=== PATIENT | male | born 1935 | race Two or more races ===

== ENCOUNTER 2017-09-29 14:49 | Inpatient (IN) | payer OTHER, MEDICAID ==
[~2017-09-29] VITALS: Ht 165.1 cm; Wt 59.0 kg
[~2017-09-29 14:49] MED LIST: ALDACTONE25 MG PO; AMITIZA8 MCG PO; ASPIRIN EC81 MG PO; BENADRYL25 MG PO; COREG12.5 MG PO; CREON DR 12,001 EACH PO; DEXILANT60 MG PO; DIPHENHYDRAMINE25 M1 PO; LOPID600 MG PO; NEURONTIN400 MG PO; NORCO 5-325 TA1 EACH PO; OMEPRAZOLE40 MG PO; PERIDEX 0.12% O16 OZ MT; PLAVIX75 MG PO; RANEXA1000 MG PO; VITAMIN B-1 PO; VITAMIN B-150 MG PO
[2017-09-29] MEDS ORDERED: FUROSEMIDE40 MG ORAL (15:02)
[2017-09-29] MEDS ORDERED: BUMETANIDE1 MG ORAL (15:02)
[2017-09-29] MEDS ORDERED: METOPROLOL SUCC25 MG ORAL (15:02)
[2017-09-29] MEDS ORDERED: LANTUS SOL100 UNIT/1 SUBQ (15:02)
[2017-09-29] MEDS ORDERED: DIOVAN80 MG ORAL (15:02)
[2017-09-29] MEDS ORDERED: PROAIR HFA8.5 GM INH (15:02)
[2017-09-29] MEDS ORDERED: ASPIR 8181 MG ORAL (15:02)
[2017-09-29] MEDS ORDERED: PENTOXIFYLLINE400 MG ORAL (15:02)
[2017-09-29] MEDS ORDERED: PROSCAR5 MG ORAL (15:02)
[2017-09-29] MEDS ORDERED: OMEPRAZOLE40 M1 ORAL (15:02)
[2017-09-29] MEDS ORDERED: LORAZEPAM0.5 MG ORAL (15:02)
[2017-09-29] MEDS ORDERED: ATORVASTATIN CA40 MG ORAL (15:02)
[2017-09-29 15:10] VITALS: BP 177/129
[2017-09-29 16:58] LABS: BASOPHILS % (AUTO) 1.5 % (0.0-2.0); EOSINOPHILS % (AUTO) 1.3 % (0.0-3.0); HEMATOCRIT 47.4 % (42.0-52.0); HEMOGLOBIN 15.4 G/DL (14.2-18.0); MEAN CORPUSCULAR VOLUME 86 FL (80-99); MONOCYTES % (AUTO) 9.8 % (1.0-10.0); NEUTROPHILS % (AUTO) 63.5 % (45.0-75.0); PLATELET COUNT 235 K/UL (150-450); RED CELL DISTRIBUTION WIDTH 14.9 % (11.6-14.8); WHITE BLOOD COUNT 6.1 K/UL (4.8-10.8)
[2017-09-29 17:00] VITALS: BP 130/54
[2017-09-29 17:00] LABS: INR 1.6 (0.9-1.1)
[2017-09-29 17:02] LABS: ANION GAP 12 mmol/L (5-15); BLOOD UREA NITROGEN 47 mg/dL (7-18); CALCIUM 9.1 MG/DL (8.5-10.1); CARBON DIOXIDE 23 MMOL/L (21-32); CHLORIDE 99 MMOL/L (98-107); CREATININE 1.8 MG/DL (0.55-1.30); POTASSIUM 4.6 MMOL/L (3.5-5.1); SODIUM 134 MMOL/L (136-145)
[2017-09-29 17:15] LABS: ALANINE AMINOTRANSFERASE 193 U/L (12-78); ALBUMIN 3.7 G/DL (3.4-5.0); ALKALINE PHOSPHATASE 160 U/L (46-116); ASPARTATE AMINO TRANSFERASE 209 U/L (15-37); BILIRUBIN,TOTAL 1.3 MG/DL (0.2-1.0)
[2017-09-29 17:17] LABS: BILIRUBIN,DIRECT 0.5 MG/DL (0.0-0.3)
[2017-09-29 19:00] VITALS: BP 118/64
[2017-09-29 21:15] VITALS: BP 117/78
[2017-09-29] MEDS ORDERED: Albuterol/Ipratropium 3ml neb HHN PRN (22:15)
[2017-09-29] MEDS ORDERED: Miralax 17gm pkt ORAL PRN (22:15)
[2017-09-29 23:00] VITALS: BP 117/71
[2017-09-29 23:45] VITALS: BP 109/69
--- NOTE | 2017-09-29 23:55 | Emergency Room Report ---
History of Present Illness General Chief Complaint: General Complaint Source: Patient, Medical Record Present Illness HPI Patient is a 82-year-old male who presented after increased leg swelling and chest discomfort. Patient reported having recent procedure which she had the left leg. The patient stated this was approximately 2 weeks prior to arrival. He reports having increased bilateral leg discomfort. Patient noted to have leg swelling. He denied shortness of breath. The patient reports taking diuretics with minimal effect. Allergies: Coded Allergies: No Known Allergies (Unverified , 05/09/12) Patient History Past Medical History: see triage record Past Surgical History: pacemaker Reviewed Nursing Documentation: PMH: Agreed Nursing Documentation-PMH Past Medical History: No History, Except For Hx Cardiac Problems: Yes Hx Hypertension: Yes Hx Pacemaker: Yes - LEFT CHEST WALL 5 YEARS AGO Hx Diabetes: Yes Hx Cancer: No Hx Gastrointestinal Problems: No Hx Neurological Problems: Yes Hx Cerebrovascular Accident: Yes Review of Systems All Other Systems: limited - by poor historian Physical Exam Vital Signs Date Time Temp Pulse Resp B/P (MAP) Pulse Ox O2 Delivery O2 Flow Rate FiO2 09/29/17 14:57 98.3 83 18 111/70 100 Room Air 98.2 Sp02 EP Interpretation: reviewed, normal General Appearance: normal inspection, well appearing, no apparent distress, alert, GCS 15, Chronically Ill Head: atraumatic ENT: normal ENT inspection, hearing grossly normal, normal voice Neck: normal inspection, full range of motion, supple, no bony tend Respiratory: normal inspection, lungs clear, normal breath sounds, no respiratory distress, no retraction, no wheezing Cardiovascular #1: regular rate, rhythm, no edema Gastrointestinal: normal inspection, normal bowel sounds, non tender, soft, no guarding, no hernia Genitourinary: no CVA tenderness Musculoskeletal: normal inspection, back normal, normal range of motion Neurologic: normal inspection, alert, oriented x3, responsive, mason apprentice III-XII nml as tested, speech normal Psychiatric: normal inspection, judgement/insight normal, mood/affect normal Skin: normal inspection, normal color, no rash, other - puncture valente near artery to left inguinal area Medical Decision Making Diagnostic Impression: Primary Impression: CHF exacerbation ER Course The patient presented for leg swelling. Differential diagnoses included was not limited to the CHF, DVT, allergic reaction, renal failure, liver disease among others.Because of complexity of patient's case laboratory testing and imaging studies were ordered. The patient was given IV Lasix. A chest x-ray one view interpreted by me showed normal cardiac size with pacemaker placement. Dr. Goran Delgado was contacted for inpatient management Labs Test 09/29/17 16:15 White Blood Count 6.1 K/UL (4.8-10.8) Red Blood Count 5.50 M/UL (4.70-6.10) Hemoglobin 15.4 G/DL (14.2-18.0) Hematocrit 47.4 % (42.0-52.0) Mean Corpuscular Volume 86 FL (80-99) Mean Corpuscular Hemoglobin 27.9 PG (27.0-31.0) Mean Corpuscular Hemoglobin Concent 32.4 G/DL (32.0-36.0) Red Cell Distribution Width 14.9 % (11.6-14.8) Platelet Count 235 K/UL (150-450) Mean Platelet Volume 8.6 FL (6.5-10.1) Neutrophils (%) (Auto) 63.5 % (45.0-75.0) Lymphocytes (%) (Auto) 24.0 % (20.0-45.0) Monocytes (%) (Auto) 9.8 % (1.0-10.0) Eosinophils (%) (Auto) 1.3 % (0.0-3.0) Basophils (%) (Auto) 1.5 % (0.0-2.0) Prothrombin Time 16.6 SEC (9.30-11.50) Prothromb Time International Ratio 1.6 (0.9-1.1) Activated Partial Thromboplast Time 24 SEC (23-33) Sodium Level 134 MMOL/L (136-145) Potassium Level 4.6 MMOL/L (3.5-5.1) Chloride Level 99 MMOL/L (98-107) Carbon Dioxide Level 23 MMOL/L (21-32) Anion Gap 12 mmol/L (5-15) Blood Urea Nitrogen 47 mg/dL (7-18) Creatinine 1.8 MG/DL (0.55-1.30) Estimat Glomerular Filtration Rate mL/min (>60) Glucose Level 157 MG/DL (74-106) Calcium Level 9.1 MG/DL (8.5-10.1) Total Bilirubin 1.3 MG/DL (0.2-1.0) Direct Bilirubin 0.5 MG/DL (0.0-0.3) Aspartate Amino Transf (AST/SGOT) 209 U/L (15-37) Alanine Aminotransferase (ALT/SGPT) 193 U/L (12-78) Alkaline Phosphatase 160 U/L (46-116) Troponin I 0.010 ng/mL (0.000-0.056) Total Protein 7.4 G/DL (6.4-8.2) Albumin 3.7 G/DL (3.4-5.0) Globulin 3.7 g/dL Albumin/Globulin Ratio 1.0 (1.0-2.7) Thyroid Stimulating Hormone (TSH) 3.500 uiU/mL (0.358-3.740) Last Vital Signs Date Time Temp Pulse Resp B/P (MAP) Pulse Ox O2 Delivery O2 Flow Rate FiO2 09/29/17 23:20 98.0 89 20 117/78 99 Room Air 98.0 Status: unchanged Disposition: ADMITTED INPATIENT Condition: Serious Referrals: NON PHYSICIAN (PCP) Jc Zhang Sep 29, 2017 23:55
[2017-09-30 04:00] VITALS: BP 118/68
[2017-09-30] MEDS: NovoLOG Insulin Flexpen SUBQ SCH ×4 (06:14→21:27)
[2017-09-30 08:00] VITALS: BP 108/58
[2017-09-30 08:41] LABS: ANION GAP 11 mmol/L (5-15); BLOOD UREA NITROGEN 42 mg/dL (7-18); CALCIUM 9.1 MG/DL (8.5-10.1); CARBON DIOXIDE 27 MMOL/L (21-32); CHLORIDE 101 MMOL/L (98-107); CREATININE 1.6 MG/DL (0.55-1.30); POTASSIUM 3.7 MMOL/L (3.5-5.1); SODIUM 139 MMOL/L (136-145)
[2017-09-30] MEDS: Carvedilol 12.5mg tab ORAL SCH ×2 (08:43→17:39)
[2017-09-30] MEDS: Heparin 5000 units/ml inj SUBQ SCH ×2 (08:45→20:25)
[2017-09-30] MEDS ORDERED: Metoprolol Succinate XL 25mg tab ORAL SCH (09:00)
--- NOTE | 2017-09-30 09:12 | Diagnostic Imaging Report ---
Indication: Shortness of breath Technique: One view of the chest Comparison: 05/11/2012 Findings: Lungs and pleural spaces are clear. The heart size is normal. There is a left chest unifocal AICD. There is evidence of prior CABG, the latter a new finding since previous study. Impression: No acute process
[2017-09-30 12:06] VITALS: BP 128/43
--- NOTE | 2017-09-30 13:07 | Consultation ---
History of Present Illness General Date patient seen: Sep 30, 2017 Chief Complaint: General Complaint Present Illness HPI 82-year-old male with hx of CAD, cardiomyopathy, ICD, presented to ER after increased leg swelling and chest discomfort for approximately 2 weeks prior to arrival. He reports having increased bilateral leg discomfort. Patient noted to have leg swelling. Allergies: Coded Allergies: No Known Allergies (Unverified , 05/09/12) Medication History Scheduled Albuterol Sulfate* (Proair Hfa*), 1 PUFF INH Q6H, (Reported) Aspirin Ec* (Aspirin Ec*), 81 MG PO HS, (Reported) Aspirin* (Aspir 81*), 81 MG ORAL DAILY, (Reported) Atorvastatin Calcium* (Atorvastatin Calcium*), 40 MG ORAL BEDTIME, (Reported) Bumetanide* (Bumetanide*), 1 MG ORAL DAILY, (Reported) Carvedilol (Coreg), 12.5 MG PO BID, (Reported) Chlorhexidine Gluconate (Chlorhexidine Gluconate), 1 OZ MT BID, (Reported) Clopidogrel Bisulfate* (Plavix*), 75 MG PO DAILY, (Reported) Dexlansoprazole (Dexilant), 60 MG PO DAILY, (Reported) Finasteride* (Proscar*), 5 MG ORAL DAILY, (Reported) Furosemide* (Lasix*), 40 MG ORAL DAILY, (Reported) Gabapentin* (Neurontin*), 400 MG PO QHS, (Reported) Gemfibrozil* (Lopid*), 600 MG PO BID, (Reported) Insulin Glargine (Lantus), 0 SUBQ BEDTIME, (Reported) Lipase/Protease/Amylase (Creon Dr 12,000 Units Capsule), 1 EACH PO TID, ( Reported) Lorazepam* (Lorazepam*), 0.5 MG ORAL THREE TIMES A DAY, (Reported) Lubiprostone (Amitiza), 8 MCG PO DAILY, (Reported) Metoprolol Succinate* (Metoprolol Succinate*), 25 MG ORAL DAILY, (Reported) Omeprazole (Omeprazole), 40 MG PO DAILY, (Reported) Omeprazole (Omeprazole), 40 MG ORAL DAILY, (Reported) Pentoxifylline* (Trental*), 400 MG ORAL THREE TIMES A DAY, (Reported) Ranolazine (Ranexa), 1,000 MG PO BID, (Reported) Spironolactone (Aldactone), 25 MG PO DAILY, (Reported) Thiamine Hcl (Vitamin B-1), 100 MG PO BID, (Reported) Valsartan (Diovan), 40 MG ORAL DAILY, (Reported) Scheduled PRN Diphenhydramine Hcl* (Diphenhydramine Hcl*), 25 MG PO HS PRN, (Reported) Hydrocodone Bit/Acetaminophen 5-325* ([place] 5-325*), 1 TAB PO Q4HR PRN, ( Reported) Patient History Healthcare decision maker Resuscitation status Full Code Advanced Directive on File No Past Medical/Surgical History Past Medical/Surgical History: (1) End-stage systolic heart failure Review of Systems All Other Systems: negative except mentioned in HPI Physical Exam General Appearance: WD/WN Lines, tubes and drains: peripheral, central line HEENT: normocephalic, atraumatic Neck: non-tender, supple Breasts: no masses Cardiovascular/Chest: normal rate Abdomen: normal bowel sounds, non tender Extremities: moderate edema Skin Exam: other Last 24 Hour Vital Signs Date Time Temp Pulse Resp B/P (MAP) Pulse Ox O2 Delivery O2 Flow Rate FiO2 09/30/17 12:06 98.1 74 18 128/43 98 Room Air 98.1 09/30/17 11:49 97.0 09/30/17 08:43 71 108/58 09/30/17 08:43 71 108/58 09/30/17 08:16 70 16 Room Air 21 09/30/17 08:00 97.0 71 19 108/58 98 Room Air 97.0 09/30/17 08:00 67 09/30/17 04:00 62 09/30/17 04:00 97.8 70 20 118/68 98 Room Air 97.8 09/30/17 00:00 59 09/29/17 23:45 97.9 65 20 109/69 100 Room Air 97.9 09/29/17 23:20 98.0 89 20 117/78 99 Room Air 98.0 09/29/17 23:00 98.0 74 20 117/71 99 Room Air 98.0 09/29/17 21:15 98.0 89 20 117/78 99 Room Air 98.0 09/29/17 19:00 98.0 89 20 118/64 99 Room Air 98.0 09/29/17 17:00 98.2 87 20 130/54 100 Room Air 98.2 09/29/17 15:10 98.2 72 20 177/129 100 Room Air 98.2 09/29/17 14:57 98.3 83 18 111/70 100 Room Air 98.2 Intake and Output 09/29/17 09/30/17 19:00 07:00 Intake Total 120 ml Output Total 1250 ml Balance -1130 ml Intake Oral 120 ml Output Urine Total 1250 ml # Voids 1 2 Laboratory Tests Test 09/29/17 16:15 09/30/17 06:35 White Blood Count 6.1 K/UL (4.8-10.8) Red Blood Count 5.50 M/UL (4.70-6.10) Hemoglobin 15.4 G/DL (14.2-18.0) Hematocrit 47.4 % (42.0-52.0) Mean Corpuscular Volume 86 FL (80-99) Mean Corpuscular Hemoglobin 27.9 PG (27.0-31.0) Mean Corpuscular Hemoglobin Concent 32.4 G/DL (32.0-36.0) Red Cell Distribution Width 14.9 % (11.6-14.8) H Platelet Count 235 K/UL (150-450) Mean Platelet Volume 8.6 FL (6.5-10.1) Neutrophils (%) (Auto) 63.5 % (45.0-75.0) Lymphocytes (%) (Auto) 24.0 % (20.0-45.0) Monocytes (%) (Auto) 9.8 % (1.0-10.0) Eosinophils (%) (Auto) 1.3 % (0.0-3.0) Basophils (%) (Auto) 1.5 % (0.0-2.0) Prothrombin Time 16.6 SEC (9.30-11.50) H Prothromb Time International Ratio 1.6 (0.9-1.1) H Activated Partial Thromboplast Time 24 SEC (23-33) Sodium Level 134 MMOL/L (136-145) L 139 MMOL/L (136-145) Potassium Level 4.6 MMOL/L (3.5-5.1) 3.7 MMOL/L (3.5-5.1) Chloride Level 99 MMOL/L (98-107) 101 MMOL/L (98-107) Carbon Dioxide Level 23 MMOL/L (21-32) 27 MMOL/L (21-32) Anion Gap 12 mmol/L (5-15) 11 mmol/L (5-15) Blood Urea Nitrogen 47 mg/dL (7-18) H 42 mg/dL (7-18) H Creatinine 1.8 MG/DL (0.55-1.30) H 1.6 MG/DL (0.55-1.30) H Estimat Glomerular Filtration Rate mL/min (>60) mL/min (>60) Glucose Level 157 MG/DL (74-106) H 61 MG/DL (74-106) L Calcium Level 9.1 MG/DL (8.5-10.1) 9.1 MG/DL (8.5-10.1) Total Bilirubin 1.3 MG/DL (0.2-1.0) H Direct Bilirubin 0.5 MG/DL (0.0-0.3) H Aspartate Amino Transf (AST/SGOT) 209 U/L (15-37) H Alanine Aminotransferase (ALT/SGPT) 193 U/L (12-78) H Alkaline Phosphatase 160 U/L (46-116) H Troponin I 0.010 ng/mL (0.000-0.056) 0.011 ng/mL (0.000-0.056) Total Protein 7.4 G/DL (6.4-8.2) Albumin 3.7 G/DL (3.4-5.0) Globulin 3.7 g/dL Albumin/Globulin Ratio 1.0 (1.0-2.7) Thyroid Stimulating Hormone (TSH) 3.500 uiU/mL (0.358-3.740) Height (Feet): 5 Height (Inches): 5.00 Weight (Pounds): 130 Medications Current Medications Medications (Trade) Dose Ordered Sig/González Route PRN Reason Start Time Stop Time Status Last Admin Dose Admin Acetaminophen (Tylenol) 650 mg Q4H PRN ORAL Fever 09/29/17 22:15 10/29/17 22:14 09/30/17 11:49 Albuterol/ Ipratropium (Albuterol/ Ipratropium) 3 ml EVERY 4 HOURS PRN HHN Shortness of Breath 09/29/17 22:15 10/04/17 22:14 Atorvastatin Calcium (Lipitor) 40 mg BEDTIME ORAL 09/30/17 21:00 10/30/17 20:59 Carvedilol (Coreg) 12.5 mg BID ORAL 09/30/17 09:00 10/30/17 08:59 09/30/17 08:43 Clopidogrel Bisulfate (Plavix) 75 mg DAILY ORAL 09/30/17 09:00 10/30/17 08:59 09/30/17 08:42 Dextrose (Dextrose 50%) STAT PRN IV Hypoglycemia 09/29/17 22:15 10/29/17 22:14 Dextrose (Dextrose 50%) STAT PRN IV Hypoglycemia 09/29/17 22:15 10/29/17 22:14 Finasteride (Proscar) 5 mg DAILY ORAL 09/30/17 09:00 10/30/17 08:59 09/30/17 08:42 Furosemide (Lasix) 40 mg EVERY 8 HOURS IV 09/30/17 06:00 10/30/17 05:59 09/30/17 05:54 Gabapentin (Neurontin) 400 mg QHS ORAL 09/30/17 21:00 10/30/17 20:59 Heparin Sodium (Porcine) (Heparin 5000 units/ml) 5,000 units EVERY 12 HOURS SUBQ 09/30/17 09:00 10/30/17 08:59 09/30/17 08:45 Insulin Aspart (NovoLOG) BEFORE MEALS AND HS SUBQ 09/30/17 06:30 10/30/17 06:29 09/30/17 11:52 Metoprolol Succinate (Toprol XL) 25 mg DAILY ORAL 09/30/17 09:00 10/30/17 08:59 09/30/17 08:43 Ondansetron HCl (Zofran) 4 mg Q6H PRN IVP Nausea & Vomiting 09/29/17 22:15 10/29/17 22:14 Polyethylene Glycol (Miralax) 17 gm DAILYPRN PRN ORAL Constipation 09/29/17 22:15 10/29/17 22:14 Temazepam (Restoril) 15 mg HSPRN PRN ORAL Insomnia 09/29/17 22:15 10/06/17 22:14 Assessment/Plan Problem List: (1) Peripheral edema ICD Codes: R60.9 - Edema, unspecified SNOMED: 270173265 (2) PVD (peripheral vascular disease) ICD Codes: I73.9 - Peripheral vascular disease, unspecified SNOMED: 187692169 (3) End-stage systolic heart failure ICD Codes: I50.20 - Unspecified systolic (congestive) heart failure SNOMED: 604342808 Assessment/Plan vascular studies from legs optimize cardiac meds arterial studies from legs check electrolytes cardiology to see. Ramy Sheriff MD Sep 30, 2017 13:07
--- NOTE | 2017-09-30 14:41 | Cardiology Report ---
APPROVED REPORT EXAM: Two-dimensional and M-mode echocardiogram with Doppler and color Doppler. INDICATION LV FUNCTION M-Mode DIMENSIONS IVSd1.4 (0.7-1.1cm)Left Atrium (MM)4.0 (1.6-4.0cm) LVDd5.6 (3.5-5.6cm)Aortic Root3.0 (2.0-3.7cm) PWd1.2 (0.7-1.1cm)Aortic Cusp Exc.1.1 (1.5-2.0cm) IVSs1.5 cm LVDs4.5 (2.5-4.0cm) PWs1.1 cm Mild left atrial enlargements . Global left ventricular hypokiniseis with distal anterior wall and apical akinesis. Left ventricular ejection fraction estimated to be less than 20 %. Mild left ventricular hypertrophy by 2-D. No evidence of pericardial effusion. Mild left atrial enlargement. Right cardiac chamber sizes are within normal limits. Focal aortic valve sclerosis with adequate cusp excursion. Moderately Thickened mitral valve leaflets with normal excursion. Moderately Mitral annulus and aortic root calcification. Pulmonic valve not well visualized. Normal tricuspid valve structure. IVC at 1.6 cm with physiologic collapse . A color flow and spectral Doppler study was performed and revealed: Mild aortic regurgitation. Peak aortic valve gradient of 18 mm Hg and a mean of 10 mmHg. Mild mitral regurgitation. Mitral inflow velocities indicates possible pseudo normalization pattern implying moderately elevated left atrial pressure (Grade II ). Mild tricuspid regurgitation. Tricuspid systolic velocities suggests peak right ventricular systolic pressure of 41 mmHg,consistent with mild pulmonary hypertension. No Pulmonic regurgitation present.
--- NOTE | 2017-09-30 14:53 | Cardiology Report ---
APPROVED REPORT EKG Measurement Heart [id number] Normal sinus rhythm Possible Left atrial enlargement Left anterior fascicular block Inferior infarct, age undetermined Anterior infarct, age undetermined Abnormal ECG
--- NOTE | 2017-09-30 15:29 | History & Physical ---
History and Physical History & Physicial Goran Delgado MD Sep 30, 2017 15:29
[2017-09-30 16:00] VITALS: BP 92/55
--- NOTE | 2017-09-30 18:00 | General Progress Note ---
Assessment/Plan Assessment/Plan Assessment - Abnormal LFT - ? passive congestion - ? Statin - ? other - CM/CHF - CAD - hypercholesterolemia Recommendations - Optimize cardiac status - check hepatitis serologies - liver imaging - agree with holding statin Thank you Charlene Downey MD Subjective Allergies: Coded Allergies: No Known Allergies (Unverified , 05/09/12) Objective Last 24 Hour Vital Signs Date Time Temp Pulse Resp B/P (MAP) Pulse Ox O2 Delivery O2 Flow Rate FiO2 09/30/17 17:39 63 92/55 09/30/17 16:00 63 09/30/17 16:00 97.0 63 20 92/55 96 Room Air 97.0 09/30/17 13:10 98.1 09/30/17 12:06 98.1 74 18 128/43 98 Room Air 98.1 09/30/17 12:00 56 09/30/17 11:49 97.0 09/30/17 08:43 71 108/58 09/30/17 08:43 71 108/58 09/30/17 08:16 70 16 Room Air 21 09/30/17 08:00 97.0 71 19 108/58 98 Room Air 97.0 09/30/17 08:00 67 09/30/17 04:00 62 09/30/17 04:00 97.8 70 20 118/68 98 Room Air 97.8 09/30/17 00:00 59 09/29/17 23:45 97.9 65 20 109/69 100 Room Air 97.9 09/29/17 23:20 98.0 89 20 117/78 99 Room Air 98.0 09/29/17 23:00 98.0 74 20 117/71 99 Room Air 98.0 09/29/17 21:15 98.0 89 20 117/78 99 Room Air 98.0 09/29/17 19:00 98.0 89 20 118/64 99 Room Air 98.0 Intake and Output 09/29/17 09/30/17 19:00 07:00 Intake Total 120 ml Output Total 1250 ml Balance -1130 ml Intake Oral 120 ml Output Urine Total 1250 ml # Voids 1 2 Laboratory Tests 09/30/17 06:35: Sodium Level 139, Potassium Level 3.7, Chloride Level 101, Carbon Dioxide Level 27, Anion Gap 11, Blood Urea Nitrogen 42H, Creatinine 1.6H, Estimat Glomerular Filtration Rate , Glucose Level 61L, Calcium Level 9.1, Troponin I 0.011 Height (Feet): 5 Height (Inches): 5.00 Weight (Pounds): 130 CHARLENE DOWNEY Sep 30, 2017 18:00
--- NOTE | 2017-09-30 19:00 | Cardiology Progress Note ---
Assessment/Plan Assessment/Plan chf acute on chronic anxiety depression cm cad s/p cabg 2014 no sig reversible defect on perfusion imagin at [facility] 2017 passive liver congestion ? cri pvd arb , asa, idurtic coreg consider psych eval for depression [id number] Objective Last 24 Hour Vital Signs Date Time Temp Pulse Resp B/P (MAP) Pulse Ox O2 Delivery O2 Flow Rate FiO2 09/30/17 17:39 63 92/55 09/30/17 16:00 63 09/30/17 16:00 97.0 63 20 92/55 96 Room Air 97.0 09/30/17 13:10 98.1 09/30/17 12:06 98.1 74 18 128/43 98 Room Air 98.1 09/30/17 12:00 56 09/30/17 11:49 97.0 09/30/17 08:43 71 108/58 09/30/17 08:43 71 108/58 09/30/17 08:16 70 16 Room Air 21 09/30/17 08:00 97.0 71 19 108/58 98 Room Air 97.0 09/30/17 08:00 67 09/30/17 04:00 62 09/30/17 04:00 97.8 70 20 118/68 98 Room Air 97.8 09/30/17 00:00 59 09/29/17 23:45 97.9 65 20 109/69 100 Room Air 97.9 09/29/17 23:20 98.0 89 20 117/78 99 Room Air 98.0 09/29/17 23:00 98.0 74 20 117/71 99 Room Air 98.0 09/29/17 21:15 98.0 89 20 117/78 99 Room Air 98.0 09/29/17 19:00 98.0 89 20 118/64 99 Room Air 98.0 Intake and Output 09/29/17 09/30/17 19:00 07:00 Intake Total 120 ml Output Total 1250 ml Balance -1130 ml Intake Oral 120 ml Output Urine Total 1250 ml # Voids 1 2 Laboratory Tests Test 09/30/17 06:35 Sodium Level 139 MMOL/L (136-145) Potassium Level 3.7 MMOL/L (3.5-5.1) Chloride Level 101 MMOL/L (98-107) Carbon Dioxide Level 27 MMOL/L (21-32) Anion Gap 11 mmol/L (5-15) Blood Urea Nitrogen 42 mg/dL (7-18) H Creatinine 1.6 MG/DL (0.55-1.30) H Estimat Glomerular Filtration Rate mL/min (>60) Glucose Level 61 MG/DL (74-106) L Calcium Level 9.1 MG/DL (8.5-10.1) Troponin I 0.011 ng/mL (0.000-0.056) TRAE ZURITA Sep 30, 2017 19:00
[2017-09-30 20:00] VITALS: BP 89/48
--- NOTE | 2017-09-30 20:30 | History and Physical Report ---
DATE OF ADMISSION: 09/29/2017 CHIEF COMPLAINT: Shortness of breath and leg edema. HISTORY OF PRESENT ILLNESS: The patient is an 82-year-old very delightful [facility] gentleman with past medical history significant for severe cardiomyopathy status post AICD in left-side chest wall with a recent generator change, history of coronary artery disease status post open heart surgery, diabetes type 2, hypertension, dyslipidemia who presented to the emergency room after he was called by clinic and advised him to come to the hospital. The patient complained about the leg edema as well as chest discomfort. He recently had a procedure on his left leg with angiogram. The patient stated that he was approximately two weeks ago prior to arrival had a procedure done. He has increased bilateral leg discomfort, noted to have the leg swollen and some association shortness of breath and chest discomfort. The patient has been taking his diuretics with minimal effect and After initial evaluation in the emergency room, the patient was admitted to the hospital with acute CHF exacerbation on chronic as well as abnormal liver function tests with transaminitis. PAST MEDICAL HISTORY AND PAST SURGICAL HISTORY: As above history of hypertension, dyslipidemia, coronary artery disease status post myocardial infarction, history of status post AICD. Denies history of cancer. However history of hypertension and stroke in the past and diabetes type 2. MEDICATIONS: At home, please refer to medication reconciliation list. ALLERGIES: No known drug allergies. SOCIAL HISTORY: The patient denies any smoking, alcohol, or drugs. FAMILY HISTORY: Father with heart disease and brother has a history of heart disease. Mother had a history of cancer unspecified back in [facility]. REVIEW OF SYSTEMS: Mostly as above. Denies any dysuria or frequency. Complained about pedal edema. Denies any hemoptysis or hematochezia. Complained about shortness of breath. Denies any loss of consciousness. Denies any suicidal or homicidal ideation. PHYSICAL EXAMINATION: VITAL SIGNS: On admission, temperature 98.3, pulse of 83, respirations 18, blood pressure 110/70. GENERAL: The patient awake, responsive, no acute distress, chronic ill looking. HEENT: Head and neck examination, pupils are equal and reactive to light. Extraocular movements are intact. Neck was supple. Positive JVD. LUNGS: Good air entry. No wheezing or rales. HEART: S1 and S2. Distant heart sounds. No murmur or gallops. AICD in left-side chest wall was noted. Midline sternotomy site is well healed. ABDOMEN: Soft, nondistended, tender on deep palpation in the epigastric as well as right upper quadrant. No rebound tenderness. No fluid shift. No ascites. EXTREMITIES: No cyanosis, clubbing, +1 edema bilateral lower extremities. NEUROLOGIC: Cranial nerves II through XII are grossly intact. Motor is 5/5 in all extremities. The patient moving all extremities spontaneously without any deficit. Gait is intact. PSYCHIATRIC: Mood and affect is intact. LABORATORY DATA: On admission from the ER, sodium 134, potassium 4.3, chloride 99, bicarbonate 23, BUN 47, creatinine 1.8 and glucose 157. Total bilirubin of 1.3 and direct bilirubin of 0.5, AST of 209, ALT of 193, alkaline phosphatase 160. First and second troponin 0.01. TSH is 3.5. PT of INR 1.6, PTT of 24. WBC of 6.1, hemoglobin 15, hematocrit 47, platelet 235. The patient's chest x-ray noted to be no acute process with a history CABG as well as AICD. The patient had an echocardiogram noted to have mild left atrial enlargement with left ventricular ejection fraction of less than 20% distal anterior wall as well as apical akinesia, mild left atrial enlargement as well identified. ASSESSMENT: 1. Acute CHF exacerbation on chronic with systolic dysfunction. 2. Severe congestive heart failure with depressed ejection fraction status post AICD. 3. Ischemic cardiomyopathy. 4. Hypertension. 5. Abnormal liver function. 6. Diabetes type 2. 7. Hypertension. 8. Dyslipidemia. PLAN: Admit the patient to telemetry. We will follow up with Dr. Sheriff Pulmonary Critical Care as well as Dr. Charlene Downey from Gastroenterology. Followup with Cardiology recommendation. We will hold off on statins at this time due to the abnormal LFTs. Code Status Full Code. DVT prophylaxis, heparin subcutaneous. The patient continue on carvedilol as well as insulin sliding scan and Lasix. Goran Delgado M.D. DR: Kelsi JOB#: [id number] CC:
[2017-09-30] MEDS ORDERED: Atorvastatin 80mg tab ORAL SCH (21:00)
[2017-09-30] MEDS ORDERED: Milk of Magnesia 30ml Ud ORAL PRN (22:45)
[2017-10-01] VITALS: BP 92/51
[2017-10-01 04:00] VITALS: BP 88/50
--- NOTE | 2017-10-01 04:15 | Consultation ---
DATE OF CONSULTATION: 09/30/2017 CARDIOLOGY CONSULTATION CONSULTING PHYSICIAN: Sherwin Sena M.D. REFERRING PHYSICIAN: Goran Delgado M.D. REASON FOR REFERRAL: Congestive heart failure with cardiomyopathy. HISTORY OF PRESENT ILLNESS: This is an elderly gentleman, very unfortunate with multiple medical problems as delineated below. The patient presented to the hospital through the emergency room at [facility] because of various complaints including the fact that he feels depressed, not able to sleep at night. He does get up at night and it is kind of difficult to tell whether this is because of anxiety or active congestive heart failure, but he presented to the emergency room with increasing leg swelling and chest discomfort. He was at [facility] recently and workup was initiated and completed and the patient was subsequently discharged, it was approximately four weeks ago, and now presents to the hospital because of symptoms. He has dyspnea on exertion. There is swelling of the ankles and shortness of breath and pressure all over his chest he indicates, but the duration or the timing is really not clear. He has been admitted to the hospital already. Today, he has received some therapies in which he feels much more comfortable. PAST MEDICAL HISTORY: Positive for acute on chronic combined systolic and diastolic heart failure, kidney disease stage 3, diabetes mellitus with diabetic nephropathy, congestive hepatopathy, coronary artery disease, status post coronary artery bypass grafting in 2014, cardiomyopathy with ejection fraction in the 20%, chronic gastritis, diabetes mellitus, generalized anxiety disorder, generalized weakness, claudication, and peripheral vascular disease. ALLERGIES: He is not allergic to any medications. SOCIAL HISTORY: He used to smoke and drink, not anymore. REVIEW OF SYSTEMS: GASTROINTESTINAL: Some poor p.o. intake, some nausea, and reflux. GENITOURINARY: Negative, although he has slowed urine stream. PULMONARY: Positive coughing. CONSTITUTIONAL: He feels cold, but no fevers or chills noted. NEUROLOGIC: Negative. PHYSICAL EXAMINATION: GENERAL: Shows to be an elderly gentleman, in no respiratory distress. He actually looks quite comfortable, sitting up, eating his dinner. VITAL SIGNS: His blood pressure is 92/55 , temperature 97 degrees, and heart rate 63. NECK: Supple. No jugular venous distention. LUNGS: Appear to be clear to auscultation and percussion. CARDIAC: S1 is normal. S2 is normal. Regular rate and rhythm. Holosystolic regurgitant murmur is noted. ABDOMEN: Soft and nontender. Positive bowel sounds. EXTREMITIES: There is no clubbing, cyanosis, nor is there any significant edema. NEUROLOGIC: He is awake, alert, and responsive. LABORATORY AND DIAGNOSTIC DATA: White count 6.1, hemoglobin 15.5, and platelet count of 235. Sodium is 139, potassium 3.7, chloride 101, bicarbonate 26, BUN 42, creatinine 1.6 down from a creatinine of 1.8 at the time of admission, and glucose is 157. His TSH of 3.55. Alkaline phosphatase is 160, AST of 209, and ALT of 193. Two sets of cardiac enzymes are negative. INR is 1.6. He has had a chest x-ray performed that showed no acute processes. His echocardiogram showed ejection fraction of 20%, global hypokinesis, apical akinesis, and mild mitral regurgitation, mild aortic regurgitation, mild tricuspid regurgitation with PA pressure of 54. His electrocardiogram shows sinus rhythm, inferior infarct, anterior infarct, no significant ST-segment changes, minor T-wave abnormalities. ASSESSMENT AND PLAN: 1. Chronic congestive heart failure, systolic as well as diastolic chronic insufficiency. 2. Diabetes mellitus type 2. 3. Passive congestion. 4. Coronary artery disease, status post coronary bypass grafting. 5. History of cardiomyopathy. Negative stress test recently at [facility] for significant reversible defects. 6. Anxiety and depression. This patient was seen in cardiac consultation. He does have chronic congestive heart failure, does not appear to be in severe distress at the present time and probably should be seen by a psychiatrist as he does indicate that he has some depression at home. In the meantime, his medications should be continued with the use of ARBs that he was taking at home and diuretic as he was taking aspirin and statins. He was previously on some Coreg as well as Plavix and Lasix to be continued as well as Aldactone to be continued. The patient has no evidence of myonecrosis and electrocardiogram is fairly unremarkable. Sherwin Sena M.D. DR: Mague JOB#: [id number] CC:
--- NOTE | 2017-10-01 05:30 | Consultation ---
DATE OF CONSULTATION: 09/30/2017 NOTE: POOR AUDIO GASTROENTEROLOGY CONSULTATION CONSULTING PHYSICIAN: Charlene Downey M.D. CHIEF COMPLAINT: I was asked to see this patient by Dr. Goran Delgado for evaluation of abnormal liver tests. HISTORY OF PRESENT ILLNESS: The patient is an 82-year-old man with a history of cardiomyopathy who came to emergency room due to chest discomfort and leg swelling, which has been occurring for the last two weeks. He has had increasing edema in his legs and has been felt to be in congestive heart failure. He has been seen by his primary team and been placed on appropriate medications. During the course of admission, he was also noted to have abnormal liver tests. The patient has a long list of medications, one of which is atorvastatin and also the other one is Lopid both given for cholesterol elevation. The patient has never had any history of liver disease or hepatitis. He denies any abdominal pain or nausea or vomiting. He does not drink alcohol. PAST MEDICAL HISTORY: History of coronary artery disease, status post open heart surgery, hypercholesterolemia, reactive airway disease, and history of edema. MEDICATIONS: See the chart list for details. FAMILY HISTORY: Negative for significant gastrointestinal disorders. SOCIAL HISTORY: The patient is single. He does not smoke and does not drink. REVIEW OF SYSTEMS: Otherwise negative. PHYSICAL EXAMINATION: GENERAL: This is a pleasant man, seen in his room. HEENT: Normocephalic and atraumatic. Sclerae are anicteric. Oropharynx is clear. NECK: Supple. CHEST: Clear to auscultation. CARDIOVASCULAR: Revealed a regular rate. ABDOMEN: Soft with good bowel sounds. EXTREMITIES: Revealed 1+ edema. ASSESSMENT: This patient presents with abnormal liver tests of unclear etiology. Given his complication of congestive heart failure and cardiomyopathy and the nature of the labs observed, the possibility of congestive heart disease would be high in differential. His medications will be another consideration where I agree with holding his statin as well as Lopid for the time being. Other possibilities including viral hepatitis, which can be checked, although less likely in this age group. His other medications can be continued but if the liver test elevations persist then they should be minimized. RECOMMENDATIONS: Per above discussion and per orders written in the chart. Thank you for asking me to participate in the care of this patient. Charlene Downey M.D. DR: DANYELLE JOB#: [id number] CC: DELMA
[2017-10-01] MEDS: NovoLOG Insulin Flexpen SUBQ SCH ×4 (06:30→21:29)
[2017-10-01 07:54] VITALS: BP 97/55
[2017-10-01 07:56] LABS: EOSINOPHILS % (AUTO) 4.6 % (0.0-3.0); HEMATOCRIT 46.4 % (42.0-52.0); HEMOGLOBIN 15.6 G/DL (14.2-18.0); LYMPHOCYTES % (AUTO) 28.2 % (20.0-45.0); MEAN CORPUSCULAR VOLUME 87 FL (80-99); NEUTROPHILS % (AUTO) 56.2 % (45.0-75.0); PLATELET COUNT 238 K/UL (150-450); RED BLOOD COUNT 5.34 M/UL (4.70-6.10); RED CELL DISTRIBUTION WIDTH 14.6 % (11.6-14.8); WHITE BLOOD COUNT 5.7 K/UL (4.8-10.8)
[2017-10-01 08:25] LABS: ALANINE AMINOTRANSFERASE 155 U/L (12-78); ALBUMIN 3.3 G/DL (3.4-5.0); ALBUMIN/GLOBULIN RATIO 0.9 (1.0-2.7); ALKALINE PHOSPHATASE 141 U/L (46-116); ANION GAP 8 mmol/L (5-15); ASPARTATE AMINO TRANSFERASE 126 U/L (15-37); BLOOD UREA NITROGEN 45 mg/dL (7-18); CALCIUM 9.3 MG/DL (8.5-10.1); CARBON DIOXIDE 29 MMOL/L (21-32); CHLORIDE 101 MMOL/L (98-107); CHOLESTEROL 154 MG/DL (< 200); CREATININE 1.7 MG/DL (0.55-1.30); PHOSPHORUS 3.4 MG/DL (2.5-4.9); POTASSIUM 4.6 MMOL/L (3.5-5.1); SODIUM 138 MMOL/L (136-145)
[2017-10-01] MEDS: Carvedilol 12.5mg tab ORAL SCH ×2 (09:00→21:00)
[2017-10-01] MEDS ORDERED: Lisinopril 2.5mg tab ORAL SCH (09:00)
[2017-10-01] MEDS ORDERED: Aspirin EC 81mg tab ORAL SCH (09:00)
[2017-10-01] MEDS ORDERED: Spironolactone 25mg tab ORAL SCH (09:00)
[2017-10-01] MEDS: Heparin 5000 units/ml inj SUBQ SCH ×2 (09:34→21:30)
--- NOTE | 2017-10-01 11:08 | Diagnostic Imaging Report ---
Indication: Abnormal LFTs, abdominal pain Technique: US ABD Complete Comparison: None Findings: Poor evaluation of the pancreas due to body habitus. Liver is normal in size and contour. No focal hepatic mass lesion is appreciated sonographically. Gallbladder is unremarkable in appearance. No gallbladder wall thickening or pericholecystic fluid. No appreciable cholelithiasis or gallbladder sludge. No biliary ductal dilatation. Common bile duct measures 3 mm. Sonographic Bang sign reported as negative. Kidneys are symmetric in size and demonstrate normal parenchymal echogenicity and thickness. There is no evidence of hydronephrosis or sonographically appreciable renal stone. Spleen is normal in size and unremarkable in appearance. Imaged portions of the IVC and aorta are normal in caliber. There is no appreciable ascites. IMPRESSION: Limited evaluation of the pancreas given body habitus. Otherwise, unremarkable abdominal sonogram. No evidence of cholelithiasis or sonographic evidence to suggest an acute cholecystitis. No appreciable biliary ductal dilatation.
--- NOTE | 2017-10-01 12:15 | Pulmonology Progress Note ---
Assessment/Plan Problems: (1) CHF exacerbation (2) End-stage systolic heart failure (3) Peripheral edema (4) PVD (peripheral vascular disease) (5) Diabetes mellitus (6) Renal insufficiency Assessment/Plan improving diuresing well US of abdomen appreciated Hepatitis panel pending cardio note appreciated sliding scale watch BUN/creatinine Subjective ROS Limited/Unobtainable: No Constitutional: Reports: no symptoms HEENT: Repors: no symptoms Respiratory: Reports: no symptoms Allergies: Coded Allergies: No Known Allergies (Unverified , 05/09/12) Objective Last 24 Hour Vital Signs Date Time Temp Pulse Resp B/P (MAP) Pulse Ox O2 Delivery O2 Flow Rate FiO2 10/01/17 09:00 97/55 10/01/17 09:00 64 97/55 10/01/17 08:24 72 16 Room Air 21 10/01/17 08:00 74 10/01/17 07:54 97.2 64 18 97/55 95 97.2 10/01/17 04:00 63 10/01/17 04:00 97.0 64 20 88/50 92 Room Air 97.0 10/01/17 00:00 60 10/01/17 00:00 97.3 58 20 92/51 98 Room Air 97.3 09/30/17 20:00 60 09/30/17 20:00 98.1 65 20 89/48 99 Room Air 98.1 09/30/17 19:05 75 16 Room Air 21 09/30/17 17:39 63 92/55 09/30/17 16:00 63 09/30/17 16:00 97.0 63 20 92/55 96 Room Air 97.0 09/30/17 13:10 98.1 Intake and Output 09/30/17 10/01/17 19:00 07:00 Intake Total 180 ml Output Total 850 ml Balance -670 ml Intake Oral 180 ml Output Urine Total 850 ml # Voids 2 6 Objective General Appearance: chachectic Lines, tubes and drains: peripheral, central line HEENT: normocephalic, atraumatic Neck: non-tender, supple Breasts: no masses Cardiovascular/Chest: normal rate Abdomen: normal bowel sounds, non tender Extremities: moderate edema Skin Exam: other General Appearance: cachetic Laboratory Tests 10/01/17 06:20: White Blood Count 5.7, Red Blood Count 5.34, Hemoglobin 15.6, Hematocrit 46.4, Mean Corpuscular Volume 87, Mean Corpuscular Hemoglobin 29.1, Mean Corpuscular Hemoglobin Concent 33.5, Red Cell Distribution Width 14.6, Platelet Count 238, Mean Platelet Volume 8.4, Neutrophils (%) (Auto) 56.2, Lymphocytes (%) (Auto) 28.2, Monocytes (%) (Auto) 10.0, Eosinophils (%) (Auto) 4.6H, Basophils (%) ( Auto) 1.0, Erythrocyte Sedimentation Rate 11, Sodium Level 138, Potassium Level 4.6, Chloride Level 101, Carbon Dioxide Level 29, Anion Gap 8, Blood Urea Nitrogen 45H, Creatinine 1.7H, Estimat Glomerular Filtration Rate , Glucose Level 86, Calcium Level 9.3, Phosphorus Level 3.4, Magnesium Level 2.4, Total Bilirubin 1.0, Aspartate Amino Transf (AST/SGOT) 126H, Alanine Aminotransferase (ALT/SGPT) 155H, Alkaline Phosphatase 141H, Troponin I 0.006, Total Protein 6.9 , Albumin 3.3L, Globulin 3.6, Albumin/Globulin Ratio 0.9L, Cholesterol Level 154 , Hepatitis A IgM Antibody [Pending], Hepatitis B Surface Antigen [Pending], Hepatitis B Core IgM Antibody [Pending], Hepatitis C Antibody [Pending] Current Medications Medications (Trade) Dose Ordered Sig/González Route PRN Reason Start Time Stop Time Status Last Admin Dose Admin Acetaminophen (Tylenol) 650 mg Q4H PRN ORAL Fever 09/29/17 22:15 10/29/17 22:14 09/30/17 11:49 Albuterol/ Ipratropium (Albuterol/ Ipratropium) 3 ml EVERY 4 HOURS PRN HHN Shortness of Breath 09/29/17 22:15 10/04/17 22:14 Aspirin (Ecotrin) 81 mg DAILY ORAL 10/01/17 09:00 10/31/17 08:59 10/01/17 09:33 Bisacodyl (Dulcolax) 10 mg DAILYPRN PRN RECTAL Constipation 09/30/17 22:45 10/30/17 22:44 Carvedilol (Coreg) 12.5 mg BID ORAL 09/30/17 09:00 10/30/17 08:59 09/30/17 08:43 Clopidogrel Bisulfate (Plavix) 75 mg DAILY ORAL 09/30/17 09:00 10/30/17 08:59 10/01/17 09:33 Dextrose (Dextrose 50%) STAT PRN IV Hypoglycemia 09/29/17 22:15 10/29/17 22:14 Dextrose (Dextrose 50%) STAT PRN IV Hypoglycemia 09/29/17 22:15 10/29/17 22:14 Finasteride (Proscar) 5 mg DAILY ORAL 09/30/17 09:00 10/30/17 08:59 10/01/17 09:33 Gabapentin (Neurontin) 400 mg QHS ORAL 09/30/17 21:00 10/30/17 20:59 09/30/17 20:24 Gemfibrozil (Lopid) 600 mg BID ORAL 10/01/17 09:00 10/31/17 08:59 10/01/17 09:33 Heparin Sodium (Porcine) (Heparin 5000 units/ml) 5,000 units EVERY 12 HOURS SUBQ 09/30/17 09:00 10/30/17 08:59 10/01/17 09:34 Insulin Aspart (NovoLOG) BEFORE MEALS AND HS SUBQ 09/30/17 06:30 10/30/17 06:29 10/01/17 11:54 Lisinopril (Zestril) 2.5 mg DAILY ORAL 10/01/17 09:00 10/31/17 08:59 Magnesium Hydroxide (Mom) 30 ml DAILYPRN PRN ORAL Constipation 09/30/17 22:45 10/30/17 22:44 09/30/17 22:52 Ondansetron HCl (Zofran) 4 mg Q6H PRN IVP Nausea & Vomiting 09/29/17 22:15 10/29/17 22:14 Polyethylene Glycol (Miralax) 17 gm DAILYPRN PRN ORAL Constipation 09/29/17 22:15 10/29/17 22:14 09/30/17 15:15 Spironolactone (Aldactone) 25 mg DAILY ORAL 10/01/17 09:00 10/31/17 08:59 Temazepam (Restoril) 15 mg HSPRN PRN ORAL Insomnia 09/29/17 22:15 10/06/17 22:14 Ramy Sheriff MD Oct 01, 2017 12:15
--- NOTE | 2017-10-01 13:29 | Internal Med Progress Note ---
Subjective Date of Service: Oct 01, 2017 Physician Name Gui Comer Attending Physician Goran Delgado MD Current Medications Medications (Trade) Dose Ordered Sig/González Route PRN Reason Start Time Stop Time Status Last Admin Dose Admin Acetaminophen (Tylenol) 650 mg Q4H PRN ORAL Fever 09/29/17 22:15 10/29/17 22:14 09/30/17 11:49 Albuterol/ Ipratropium (Albuterol/ Ipratropium) 3 ml EVERY 4 HOURS PRN HHN Shortness of Breath 09/29/17 22:15 10/04/17 22:14 Aspirin (Ecotrin) 81 mg DAILY ORAL 10/01/17 09:00 10/31/17 08:59 10/01/17 09:33 Bisacodyl (Dulcolax) 10 mg DAILYPRN PRN RECTAL Constipation 09/30/17 22:45 10/30/17 22:44 Carvedilol (Coreg) 12.5 mg BID ORAL 09/30/17 09:00 10/30/17 08:59 09/30/17 08:43 Clopidogrel Bisulfate (Plavix) 75 mg DAILY ORAL 09/30/17 09:00 10/30/17 08:59 10/01/17 09:33 Dextrose (Dextrose 50%) STAT PRN IV Hypoglycemia 09/29/17 22:15 10/29/17 22:14 Dextrose (Dextrose 50%) STAT PRN IV Hypoglycemia 09/29/17 22:15 10/29/17 22:14 Finasteride (Proscar) 5 mg DAILY ORAL 09/30/17 09:00 10/30/17 08:59 10/01/17 09:33 Gabapentin (Neurontin) 400 mg QHS ORAL 09/30/17 21:00 10/30/17 20:59 09/30/17 20:24 Gemfibrozil (Lopid) 600 mg BID ORAL 10/01/17 09:00 10/31/17 08:59 10/01/17 09:33 Heparin Sodium (Porcine) (Heparin 5000 units/ml) 5,000 units EVERY 12 HOURS SUBQ 09/30/17 09:00 10/30/17 08:59 10/01/17 09:34 Insulin Aspart (NovoLOG) BEFORE MEALS AND HS SUBQ 09/30/17 06:30 10/30/17 06:29 10/01/17 11:54 Lisinopril (Zestril) 2.5 mg DAILY ORAL 10/01/17 09:00 10/31/17 08:59 Magnesium Hydroxide (Mom) 30 ml DAILYPRN PRN ORAL Constipation 09/30/17 22:45 10/30/17 22:44 09/30/17 22:52 Ondansetron HCl (Zofran) 4 mg Q6H PRN IVP Nausea & Vomiting 09/29/17 22:15 10/29/17 22:14 Polyethylene Glycol (Miralax) 17 gm DAILYPRN PRN ORAL Constipation 09/29/17 22:15 10/29/17 22:14 09/30/17 15:15 Spironolactone (Aldactone) 25 mg DAILY ORAL 10/01/17 09:00 10/31/17 08:59 Temazepam (Restoril) 15 mg HSPRN PRN ORAL Insomnia 09/29/17 22:15 10/06/17 22:14 Allergies: Coded Allergies: No Known Allergies (Unverified , 05/09/12) ROS Limited/Unobtainable: No Constitutional: Reports: no symptoms HEENT: Reports: no symptoms Cardiovascular: Reports: chest pain Respiratory: Reports: shortness of breath Gastrointestinal/Abdominal: Reports: no symptoms Genitourinary: Reports: no symptoms Neurologic/Psychiatric: Reports: no symptoms Subjective 82 YO M admitted with edema bilat legs and shortness of breath. Now CHF exacerbation. Cover for Int Med Dr Delgado. Objective Last Vital Signs Date Time Temp Pulse Resp B/P (MAP) Pulse Ox O2 Delivery O2 Flow Rate FiO2 10/01/17 09:00 97/55 10/01/17 09:00 64 10/01/17 08:24 16 Room Air 21 10/01/17 07:54 97.2 95 97.2 General Appearance: WD/WN, no apparent distress, alert EENT: PERRL/EOMI, normal ENT inspection Neck: non-tender, normal alignment, supple, normal inspection Cardiovascular: normal peripheral pulses, normal rate, regular rhythm, no gallop/murmur, no JVD Respiratory/Chest: chest wall non-tender, no respiratory distress, no accessory muscle use, accessory muscle use, crackles/rales, expiratory wheezing Abdomen: normal bowel sounds, non tender, soft, no organomegaly, no mass Extremities: normal range of motion, non-tender Edema: moderate edema 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, no motor/sensory deficits, abnormal gait , alert Skin: normal pigmentation, warm/dry Laboratory Tests Test 10/01/17 06:20 White Blood Count 5.7 K/UL (4.8-10.8) Red Blood Count 5.34 M/UL (4.70-6.10) Hemoglobin 15.6 G/DL (14.2-18.0) Hematocrit 46.4 % (42.0-52.0) Mean Corpuscular Volume 87 FL (80-99) Mean Corpuscular Hemoglobin 29.1 PG (27.0-31.0) Mean Corpuscular Hemoglobin Concent 33.5 G/DL (32.0-36.0) Red Cell Distribution Width 14.6 % (11.6-14.8) Platelet Count 238 K/UL (150-450) Mean Platelet Volume 8.4 FL (6.5-10.1) Neutrophils (%) (Auto) 56.2 % (45.0-75.0) Lymphocytes (%) (Auto) 28.2 % (20.0-45.0) Monocytes (%) (Auto) 10.0 % (1.0-10.0) Eosinophils (%) (Auto) 4.6 % (0.0-3.0) H Basophils (%) (Auto) 1.0 % (0.0-2.0) Erythrocyte Sedimentation Rate 11 MM/HR (0-20) Sodium Level 138 MMOL/L (136-145) Potassium Level 4.6 MMOL/L (3.5-5.1) Chloride Level 101 MMOL/L (98-107) Carbon Dioxide Level 29 MMOL/L (21-32) Anion Gap 8 mmol/L (5-15) Blood Urea Nitrogen 45 mg/dL (7-18) H Creatinine 1.7 MG/DL (0.55-1.30) H Estimat Glomerular Filtration Rate mL/min (>60) Glucose Level 86 MG/DL (74-106) Calcium Level 9.3 MG/DL (8.5-10.1) Phosphorus Level 3.4 MG/DL (2.5-4.9) Magnesium Level 2.4 MG/DL (1.8-2.4) Total Bilirubin 1.0 MG/DL (0.2-1.0) Aspartate Amino Transf (AST/SGOT) 126 U/L (15-37) H Alanine Aminotransferase (ALT/SGPT) 155 U/L (12-78) H Alkaline Phosphatase 141 U/L (46-116) H Troponin I 0.006 ng/mL (0.000-0.056) Total Protein 6.9 G/DL (6.4-8.2) Albumin 3.3 G/DL (3.4-5.0) L Globulin 3.6 g/dL Albumin/Globulin Ratio 0.9 (1.0-2.7) L Cholesterol Level 154 MG/DL (< 200) Hepatitis A IgM Antibody Pending Hepatitis B Surface Antigen Pending Hepatitis B Core IgM Antibody Pending Hepatitis C Antibody Pending Intake and Output 09/30/17 10/01/17 19:00 07:00 Intake Total 180 ml Output Total 850 ml Balance -670 ml Intake Oral 180 ml Output Urine Total 850 ml # Voids 2 6 Assessment/Plan Problem List: (1) CAD (coronary artery disease) Assessment & Plan: S/P CABG. See cardiology note. (2) Cardiomyopathy (3) Elevated LFTs Assessment & Plan: Abdominal ultrasound=WNL. See GI note. (4) Diabetes mellitus, type II (5) HTN (hypertension) Assessment & Plan: Continue lisinopril (6) Hypercholesteremia Assessment & Plan: Continue gemfibrozil (7) AICD (automatic cardioverter/defibrillator) present (8) Chest pain (9) SOB (shortness of breath) Assessment & Plan: Due to CHF (10) CHF exacerbation Assessment & Plan: LVEF <20%. See cardiology note. Continue lasix (11) Edema Status: progressing GUI COMER Oct 01, 2017 13:29
--- NOTE | 2017-10-01 14:07 | General Progress Note ---
Assessment/Plan Assessment/Plan Assessment - Abnormal LFT - ? passive congestion - ? Statin - ? other - CM/CHF - CAD - hypercholesterolemia Recommendations - Optimize cardiac status - check hepatitis serologies>>pending - liver imaging>>.US >> NEG - agree with holding statin _LFTS improving Subjective ROS Limited/Unobtainable: Yes Allergies: Coded Allergies: No Known Allergies (Unverified , 05/09/12) Objective Last 24 Hour Vital Signs Date Time Temp Pulse Resp B/P (MAP) Pulse Ox O2 Delivery O2 Flow Rate FiO2 10/01/17 12:00 62 10/01/17 09:00 97/55 10/01/17 09:00 64 97/55 10/01/17 08:24 72 16 Room Air 21 10/01/17 08:00 74 10/01/17 07:54 97.2 64 18 97/55 95 97.2 10/01/17 04:00 63 10/01/17 04:00 97.0 64 20 88/50 92 Room Air 97.0 10/01/17 00:00 60 10/01/17 00:00 97.3 58 20 92/51 98 Room Air 97.3 09/30/17 20:00 60 09/30/17 20:00 98.1 65 20 89/48 99 Room Air 98.1 09/30/17 19:05 75 16 Room Air 21 09/30/17 17:39 63 92/55 09/30/17 16:00 63 09/30/17 16:00 97.0 63 20 92/55 96 Room Air 97.0 Intake and Output 09/30/17 10/01/17 19:00 07:00 Intake Total 180 ml Output Total 850 ml Balance -670 ml Intake Oral 180 ml Output Urine Total 850 ml # Voids 2 6 Laboratory Tests 10/01/17 06:20: White Blood Count 5.7, Red Blood Count 5.34, Hemoglobin 15.6, Hematocrit 46.4, Mean Corpuscular Volume 87, Mean Corpuscular Hemoglobin 29.1, Mean Corpuscular Hemoglobin Concent 33.5, Red Cell Distribution Width 14.6, Platelet Count 238, Mean Platelet Volume 8.4, Neutrophils (%) (Auto) 56.2, Lymphocytes (%) (Auto) 28.2, Monocytes (%) (Auto) 10.0, Eosinophils (%) (Auto) 4.6H, Basophils (%) ( Auto) 1.0, Erythrocyte Sedimentation Rate 11, Sodium Level 138, Potassium Level 4.6, Chloride Level 101, Carbon Dioxide Level 29, Anion Gap 8, Blood Urea Nitrogen 45H, Creatinine 1.7H, Estimat Glomerular Filtration Rate , Glucose Level 86, Calcium Level 9.3, Phosphorus Level 3.4, Magnesium Level 2.4, Total Bilirubin 1.0, Aspartate Amino Transf (AST/SGOT) 126H, Alanine Aminotransferase (ALT/SGPT) 155H, Alkaline Phosphatase 141H, Troponin I 0.006, Total Protein 6.9 , Albumin 3.3L, Globulin 3.6, Albumin/Globulin Ratio 0.9L, Cholesterol Level 154 , Hepatitis A IgM Antibody [Pending], Hepatitis B Surface Antigen [Pending], Hepatitis B Core IgM Antibody [Pending], Hepatitis C Antibody [Pending] Height (Feet): 5 Height (Inches): 5.00 Weight (Pounds): 130 General Appearance: alert EENT: normal ENT inspection Neck: supple Cardiovascular: normal rate Respiratory/Chest: decreased breath sounds Abdomen: normal bowel sounds, non tender, soft Extremities: non-tender SAIRA CANALES Oct 01, 2017 14:07
--- NOTE | 2017-10-01 14:21 | Cardiology Progress Note ---
Assessment/Plan Problem List: (1) CHF exacerbation (2) Peripheral edema (3) PVD (peripheral vascular disease) (4) CAD (coronary artery disease) (5) Elevated LFTs (6) AICD (automatic cardioverter/defibrillator) present Status: stable, progressing Status Narrative is stable from a cardiac standpoint. Symptoms have improved w/ iv lasix over past few days Assessment/Plan agree w/ dc of iv lasix and would start oral lasix tomorrow if BP improved. Continue coreg, aldactone/ Cannot start CARLO inhibitor or ARB due to low BP and renal insufficiency. Agree w/ transfer off telemetry. Subjective ROS Limited/Unobtainable: No Subjective Cardiology for Dr. Sena Mr. Elizabeth reports no CP, dyspnea overnight. Leg swelling has improved and he has no leg pain Objective Last 24 Hour Vital Signs Date Time Temp Pulse Resp B/P (MAP) Pulse Ox O2 Delivery O2 Flow Rate FiO2 10/01/17 12:00 62 10/01/17 09:00 97/55 10/01/17 09:00 64 97/55 10/01/17 08:24 72 16 Room Air 21 10/01/17 08:00 74 10/01/17 07:54 97.2 64 18 97/55 95 97.2 10/01/17 04:00 63 10/01/17 04:00 97.0 64 20 88/50 92 Room Air 97.0 10/01/17 00:00 60 10/01/17 00:00 97.3 58 20 92/51 98 Room Air 97.3 09/30/17 20:00 60 09/30/17 20:00 98.1 65 20 89/48 99 Room Air 98.1 09/30/17 19:05 75 16 Room Air 21 09/30/17 17:39 63 92/55 09/30/17 16:00 63 09/30/17 16:00 97.0 63 20 92/55 96 Room Air 97.0 General Appearance: WD/WN, no apparent distress, alert EENT: PERRL/EOMI Neck: supple, no JVD Rhythm: NSR Cardiovascular: normal rate, regular rhythm, other - lat displaced pmi, normal s1s2 no m, s3 Respiratory/Chest: lungs clear Abdomen: normal bowel sounds, non tender, soft Extremities: no swelling Intake and Output 09/30/17 10/01/17 19:00 07:00 Intake Total 180 ml Output Total 850 ml Balance -670 ml Intake Oral 180 ml Output Urine Total 850 ml # Voids 2 6 Laboratory Tests Test 10/01/17 06:20 White Blood Count 5.7 K/UL (4.8-10.8) Red Blood Count 5.34 M/UL (4.70-6.10) Hemoglobin 15.6 G/DL (14.2-18.0) Hematocrit 46.4 % (42.0-52.0) Mean Corpuscular Volume 87 FL (80-99) Mean Corpuscular Hemoglobin 29.1 PG (27.0-31.0) Mean Corpuscular Hemoglobin Concent 33.5 G/DL (32.0-36.0) Red Cell Distribution Width 14.6 % (11.6-14.8) Platelet Count 238 K/UL (150-450) Mean Platelet Volume 8.4 FL (6.5-10.1) Neutrophils (%) (Auto) 56.2 % (45.0-75.0) Lymphocytes (%) (Auto) 28.2 % (20.0-45.0) Monocytes (%) (Auto) 10.0 % (1.0-10.0) Eosinophils (%) (Auto) 4.6 % (0.0-3.0) H Basophils (%) (Auto) 1.0 % (0.0-2.0) Erythrocyte Sedimentation Rate 11 MM/HR (0-20) Sodium Level 138 MMOL/L (136-145) Potassium Level 4.6 MMOL/L (3.5-5.1) Chloride Level 101 MMOL/L (98-107) Carbon Dioxide Level 29 MMOL/L (21-32) Anion Gap 8 mmol/L (5-15) Blood Urea Nitrogen 45 mg/dL (7-18) H Creatinine 1.7 MG/DL (0.55-1.30) H Estimat Glomerular Filtration Rate mL/min (>60) Glucose Level 86 MG/DL (74-106) Calcium Level 9.3 MG/DL (8.5-10.1) Phosphorus Level 3.4 MG/DL (2.5-4.9) Magnesium Level 2.4 MG/DL (1.8-2.4) Total Bilirubin 1.0 MG/DL (0.2-1.0) Aspartate Amino Transf (AST/SGOT) 126 U/L (15-37) H Alanine Aminotransferase (ALT/SGPT) 155 U/L (12-78) H Alkaline Phosphatase 141 U/L (46-116) H Troponin I 0.006 ng/mL (0.000-0.056) Total Protein 6.9 G/DL (6.4-8.2) Albumin 3.3 G/DL (3.4-5.0) L Globulin 3.6 g/dL Albumin/Globulin Ratio 0.9 (1.0-2.7) L Cholesterol Level 154 MG/DL (< 200) Hepatitis A IgM Antibody Pending Hepatitis B Surface Antigen Pending Hepatitis B Core IgM Antibody Pending Hepatitis C Antibody Pending VOLODYMYR GUNN Oct 01, 2017 14:21
[2017-10-01] MEDS ORDERED: Milk of Magnesia 30ml Ud ORAL PRN (17:00)
[2017-10-01] MEDS ORDERED: Albuterol/Ipratropium 3ml neb HHN PRN (17:00)
[2017-10-01 20:00] VITALS: BP 97/77
--- NOTE | 2017-10-01 20:00 | Consultation ---
DATE OF CONSULTATION: 10/01/2017 HEMATOLOGY/ONCOLOGY CONSULTATION CONSULTING PHYSICIAN: Constantino Cornell M.D. REQUESTING PHYSICIAN: Goran Delgado M.D. REASON FOR CONSULTATION: Evaluation of distal DVT. IDENTIFYING DATA: Dear Dr. Delgado and Dr. Sheriff, The patient is a pleasant 82-year-old male with past medical history significant for severe cardiomyopathy, AICD, left-sided chest wall, recent generator change; CAD, status post surgery; diabetes mellitus, type 2; hypertension; dyslipidemia, at this time presents to the ER from the clinic with lower extremity edema, chest discomfort. He had approximately two weeks of this, increased left leg discomfort, likely the leg is swollen, associated with shortness of breath. Hematology Service consulted for further evaluation of distal DVT. PAST MEDICAL HISTORY: Dyslipidemia, diabetes mellitus, COPD, status post IN, and AICD. MEDICATIONS: Reviewed. ALLERGIES: No known drug allergies. SOCIAL HISTORY: No alcohol, tobacco, or illicit drug use. FAMILY HISTORY: Father has a history of heart disease as well. REVIEW OF SYSTEMS: CONSTITUTIONAL: No fever, chills or night sweats. SKIN: No rashes, bumps, or itching. HEENT: No headache, hearing or vision changes. BREASTS: No lumps, pain, or discharge. PULMONARY: No cough, sputum, or shortness of breath. GASTROINTESTINAL: No nausea, vomiting, or diarrhea. GENITOURINARY: No dysuria, frequency, or urgency. MUSCULOSKELETAL: No joint swelling, muscle pain, or trauma. PHYSICAL EXAMINATION: VITAL SIGNS: Reviewed. GENERAL: No distress. LUNGS: Decreased breath sounds. CARDIOVASCULAR: Regular rate. No S3 or S4. ABDOMEN: Soft, nontender, and nondistended. EXTREMITIES: 1+ edema in bilateral lower extremities. LABORATORY AND DIAGNOSTIC DATA: WBC of 4.7, hemoglobin 15.6, hematocrit 47, platelet count 33,000. BUN of 47 and creatinine 1.7. AST of 126, ALT 155, and alkaline phosphatase 101,000. ASSESSMENT AND RECOMMENDATION: 1. Lower extremity deep venous thrombosis of the left leg with thrombus in the peroneal vein. This is a distal leg deep venous thrombosis and at this time, given low risk of clot extension, we will hold off on anticoagulation. Only continue heparin subcutaneous. 2. Coagulopathy, potentially secondary to liver disease. Closely monitor. Hepatitis panel is pending at the moment. 3. Transaminitis, potentially secondary to liver disease. He has been seen by Gastroenterology Service. Closely monitor. 4. Coronary artery disease, status post heart surgery. 5. Hypercholesteremia. LDL goal is 100. 6. Lower extremities edema, secondary to congestive heart failure. I appreciate the consultation. Constantino Cornell M.D. DR: KEN JOB#: [id number] CC:
[2017-10-01] MEDS ORDERED: Miralax 17gm pkt ORAL PRN (22:15)
[2017-10-02 00:29] VITALS: BP 101/74
[2017-10-02 04:20] VITALS: BP 104/65
[2017-10-02] MEDS: NovoLOG Insulin Flexpen SUBQ SCH ×4 (06:23→21:11)
--- NOTE | 2017-10-02 07:34 | General Progress Note ---
Assessment/Plan Assessment/Plan Assessment - Abnormal LFT - ? passive congestion - ? Statin - ? other - CM/CHF - CAD - hypercholesterolemia Recommendations - Optimize cardiac status - check hepatitis serologies>>pending - liver imaging>>.US >> NEG - agree with holding statin _LFTS improving Subjective Allergies: Coded Allergies: No Known Allergies (Unverified , 05/09/12) Subjective no event Objective Last 24 Hour Vital Signs Date Time Temp Pulse Resp B/P (MAP) Pulse Ox O2 Delivery O2 Flow Rate FiO2 10/02/17 04:20 97.9 81 17 104/65 98 97.9 10/02/17 00:29 96.9 77 17 101/74 100 96.9 10/01/17 21:00 74 91/51 10/01/17 20:00 96.8 76 17 97/77 100 96.8 10/01/17 19:13 78 16 Room Air 21 10/01/17 12:00 62 10/01/17 09:00 97/55 10/01/17 09:00 64 97/55 10/01/17 08:24 72 16 Room Air 21 10/01/17 08:00 74 10/01/17 07:54 97.2 64 18 97/55 95 97.2 Intake and Output 10/01/17 10/02/17 19:00 07:00 Intake Total 920 ml 240 ml Balance 920 ml 240 ml Intake Oral 920 ml 240 ml # Voids 2 2 Laboratory Tests 10/01/17 21:50: Troponin I 0.005 10/02/17 06:15: White Blood Count [Pending], Red Blood Count [Pending], Hemoglobin [Pending], Hematocrit [Pending], Mean Corpuscular Volume [Pending], Mean Corpuscular Hemoglobin [Pending], Mean Corpuscular Hemoglobin Concent [Pending], Red Cell Distribution Width [Pending], Platelet Count [Pending], Mean Platelet Volume [ Pending], Neutrophils (%) (Auto) [Pending], Lymphocytes (%) (Auto) [Pending], Monocytes (%) (Auto) [Pending], Eosinophils (%) (Auto) [Pending], Basophils (%) (Auto) [Pending], Sodium Level [Pending], Potassium Level [Pending], Chloride Level [Pending], Carbon Dioxide Level [Pending], Blood Urea Nitrogen [Pending], Creatinine [Pending], Estimat Glomerular Filtration Rate [Pending], Glucose Level [Pending], Calcium Level [Pending], Total Bilirubin [Pending], Aspartate Amino Transf (AST/SGOT) [Pending], Alanine Aminotransferase (ALT/SGPT) [Pending] , Alkaline Phosphatase [Pending], Pro-B-Type Natriuretic Peptide [Pending], Total Protein [Pending], Albumin [Pending], Globulin [Pending] Height (Feet): 5 Height (Inches): 5.00 Weight (Pounds): 130 General Appearance: alert EENT: normal ENT inspection Neck: supple Cardiovascular: normal rate Respiratory/Chest: decreased breath sounds Abdomen: normal bowel sounds, non tender, soft Extremities: non-tender SAIRA CANALES Oct 02, 2017 07:34
[2017-10-02 07:46] LABS: BASOPHILS % (AUTO) 1.5 % (0.0-2.0); EOSINOPHILS % (AUTO) 5.3 % (0.0-3.0); HEMATOCRIT 42.1 % (42.0-52.0); HEMOGLOBIN 13.7 G/DL (14.2-18.0); LYMPHOCYTES % (AUTO) 30.3 % (20.0-45.0); MEAN CORPUSCULAR VOLUME 87 FL (80-99); MONOCYTES % (AUTO) 12.5 % (1.0-10.0); NEUTROPHILS % (AUTO) 50.4 % (45.0-75.0); PLATELET COUNT 229 K/UL (150-450); RED BLOOD COUNT 4.82 M/UL (4.70-6.10); RED CELL DISTRIBUTION WIDTH 14.9 % (11.6-14.8)
[2017-10-02 07:54] LABS: ALANINE AMINOTRANSFERASE 116 U/L (12-78); ALBUMIN/GLOBULIN RATIO 0.9 (1.0-2.7); ALKALINE PHOSPHATASE 121 U/L (46-116); ANION GAP 6 mmol/L (5-15); ASPARTATE AMINO TRANSFERASE 81 U/L (15-37); BILIRUBIN,TOTAL 0.9 MG/DL (0.2-1.0); BLOOD UREA NITROGEN 51 mg/dL (7-18); CARBON DIOXIDE 28 MMOL/L (21-32); CHLORIDE 101 MMOL/L (98-107); CREATININE 1.6 MG/DL (0.55-1.30); POTASSIUM 4.1 MMOL/L (3.5-5.1); SODIUM 135 MMOL/L (136-145)
[2017-10-02 08:00] VITALS: BP 91/60
[2017-10-02] MEDS: Aspirin EC 81mg tab ORAL SCH (10:09)
[2017-10-02] MEDS: Heparin 5000 units/ml inj SUBQ SCH ×2 (10:12→21:12)
[2017-10-02] MEDS: Carvedilol 12.5mg tab ORAL SCH ×2 (10:14→21:00)
[2017-10-02] MEDS: Spironolactone 25mg tab ORAL SCH (10:14)
[2017-10-02] MEDS: Lisinopril 2.5mg tab ORAL SCH (10:15)
[2017-10-02] MEDS ORDERED: Albuterol ud Inhalation HHN PRN (11:15)
[2017-10-02 12:00] VITALS: BP 95/63
[2017-10-02 12:29] VITALS: BP 117/70
--- NOTE | 2017-10-02 14:22 | Pulmonology Progress Note ---
Assessment/Plan Problems: (1) CHF exacerbation (2) End-stage systolic heart failure (3) Peripheral edema (4) PVD (peripheral vascular disease) (5) Diabetes mellitus (6) Renal insufficiency Assessment/Plan improving diuresing well US of abdomen appreciated Hepatitis panel pending cardio note appreciated sliding scale watch BUN/creatinine Subjective ROS Limited/Unobtainable: No Constitutional: Reports: no symptoms HEENT: Repors: no symptoms Respiratory: Reports: no symptoms Allergies: Coded Allergies: No Known Allergies (Unverified , 05/09/12) Objective Last 24 Hour Vital Signs Date Time Temp Pulse Resp B/P (MAP) Pulse Ox O2 Delivery O2 Flow Rate FiO2 10/02/17 12:00 97.9 78 20 95/63 100 97.9 10/02/17 08:00 98.1 85 19 91/60 100 98.1 10/02/17 04:20 97.9 81 17 104/65 98 97.9 10/02/17 00:29 96.9 77 17 101/74 100 96.9 10/01/17 21:00 74 91/51 10/01/17 20:00 96.8 76 17 97/77 100 96.8 10/01/17 19:13 78 16 Room Air 21 Intake and Output 10/01/17 10/02/17 19:00 07:00 Intake Total 920 ml 240 ml Balance 920 ml 240 ml Intake Oral 920 ml 240 ml # Voids 2 2 Objective General Appearance: chachectic Lines, tubes and drains: peripheral, central line HEENT: normocephalic, atraumatic Neck: non-tender, supple Breasts: no masses Cardiovascular/Chest: normal rate Abdomen: normal bowel sounds, non tender Extremities: moderate edema Skin Exam: other Laboratory Tests 10/01/17 21:50: Troponin I 0.005 10/02/17 06:15: White Blood Count 5.0, Red Blood Count 4.82, Hemoglobin 13.7L, Hematocrit 42.1, Mean Corpuscular Volume 87, Mean Corpuscular Hemoglobin 28.4, Mean Corpuscular Hemoglobin Concent 32.6, Red Cell Distribution Width 14.9H, Platelet Count 229, Mean Platelet Volume 7.9, Neutrophils (%) (Auto) 50.4, Lymphocytes (%) (Auto) 30.3, Monocytes (%) (Auto) 12.5H, Eosinophils (%) (Auto) 5.3H, Basophils (%) ( Auto) 1.5, Sodium Level 135L, Potassium Level 4.1, Chloride Level 101, Carbon Dioxide Level 28, Anion Gap 6, Blood Urea Nitrogen 51H, Creatinine 1.6H, Estimat Glomerular Filtration Rate , Glucose Level 96, Calcium Level 9.0, Total Bilirubin 0.9, Aspartate Amino Transf (AST/SGOT) 81H, Alanine Aminotransferase ( ALT/SGPT) 116H, Alkaline Phosphatase 121H, Pro-B-Type Natriuretic Peptide 3333H , Total Protein 6.2L, Albumin 3.0L, Globulin 3.2, Albumin/Globulin Ratio 0.9L Current Medications Medications (Trade) Dose Ordered Sig/González Route PRN Reason Start Time Stop Time Status Last Admin Dose Admin Acetaminophen (Tylenol) 650 mg Q4H PRN ORAL T>100.5 10/01/17 18:15 10/29/17 22:14 Albuterol Sulfate (Proventil) 2.5 mg Q4H PRN HHN Shortness of Breath 10/02/17 11:15 10/07/17 11:14 Aspirin (Ecotrin) 81 mg DAILY ORAL 10/02/17 09:00 10/31/17 08:59 10/02/17 10:09 Bisacodyl (Dulcolax) 10 mg DAILYPRN PRN RECTAL Constipation 10/01/17 17:00 10/30/17 16:59 Carvedilol (Coreg) 12.5 mg Q12HR ORAL 10/01/17 21:00 10/31/17 20:59 Clopidogrel Bisulfate (Plavix) 75 mg DAILY ORAL 10/02/17 09:00 10/30/17 08:59 10/02/17 10:09 Dextrose (Dextrose 50%) 25 ml STAT PRN IV Hypoglycemia 10/01/17 22:15 10/29/17 22:14 Dextrose (Dextrose 50%) 50 ml STAT PRN IV Hypoglycemia 10/01/17 22:15 10/29/17 22:14 Finasteride (Proscar) 5 mg DAILY ORAL 10/02/17 09:00 10/30/17 08:59 10/02/17 10:09 Gabapentin (Neurontin) 400 mg QHS ORAL 10/01/17 21:00 5/13/18 20:59 10/01/17 21:27 Gemfibrozil (Lopid) 600 mg BID ORAL 10/01/17 18:00 10/31/17 08:59 10/02/17 10:08 Heparin Sodium (Porcine) (Heparin 5000 units/ml) 5,000 units EVERY 12 HOURS SUBQ 10/01/17 21:00 10/30/17 08:59 10/02/17 10:12 Insulin Aspart (NovoLOG) BEFORE MEALS AND HS SUBQ 10/01/17 17:30 10/30/17 17:29 10/02/17 11:40 Lisinopril (Zestril) 2.5 mg DAILY ORAL 10/02/17 09:00 10/31/17 08:59 Magnesium Hydroxide (Mom) 30 ml DAILYPRN PRN ORAL Constipation 10/01/17 17:00 10/30/17 16:59 Ondansetron HCl (Zofran) 4 mg Q6H PRN IVP Nausea & Vomiting 10/01/17 17:00 10/29/17 16:59 Polyethylene Glycol (Miralax) 17 gm DAILYPRN PRN ORAL Constipation 10/01/17 22:15 10/29/17 22:14 10/02/17 11:04 Spironolactone (Aldactone) 25 mg DAILY ORAL 10/02/17 09:00 10/31/17 08:59 Temazepam (Restoril) 15 mg HSPRN PRN ORAL Insomnia 10/01/17 21:00 10/06/17 20:59 10/01/17 21:27 Ramy Sheriff MD Oct 02, 2017 14:22
--- NOTE | 2017-10-02 16:33 | Internal Med Progress Note ---
Subjective Date of Service: Oct 02, 2017 Physician Name Gui Comer Attending Physician Goran Delgado MD Current Medications Medications (Trade) Dose Ordered Sig/González Route PRN Reason Start Time Stop Time Status Last Admin Dose Admin Acetaminophen (Tylenol) 650 mg Q4H PRN ORAL T>100.5 10/01/17 18:15 10/29/17 22:14 10/02/17 16:05 Albuterol Sulfate (Proventil) 2.5 mg Q4H PRN HHN Shortness of Breath 10/02/17 11:15 10/07/17 11:14 Aspirin (Ecotrin) 81 mg DAILY ORAL 10/02/17 09:00 10/31/17 08:59 10/02/17 10:09 Bisacodyl (Dulcolax) 10 mg DAILYPRN PRN RECTAL Constipation 10/01/17 17:00 10/30/17 16:59 Carvedilol (Coreg) 12.5 mg Q12HR ORAL 10/01/17 21:00 10/31/17 20:59 Clopidogrel Bisulfate (Plavix) 75 mg DAILY ORAL 10/02/17 09:00 10/30/17 08:59 10/02/17 10:09 Dextrose (Dextrose 50%) 25 ml STAT PRN IV Hypoglycemia 10/01/17 22:15 10/29/17 22:14 Dextrose (Dextrose 50%) 50 ml STAT PRN IV Hypoglycemia 10/01/17 22:15 10/29/17 22:14 Finasteride (Proscar) 5 mg DAILY ORAL 10/02/17 09:00 10/30/17 08:59 10/02/17 10:09 Gabapentin (Neurontin) 400 mg QHS ORAL 10/01/17 21:00 10/30/17 20:59 10/01/17 21:27 Gemfibrozil (Lopid) 600 mg BID ORAL 10/01/17 18:00 10/31/17 08:59 10/02/17 10:08 Heparin Sodium (Porcine) (Heparin 5000 units/ml) 5,000 units EVERY 12 HOURS SUBQ 10/01/17 21:00 10/30/17 08:59 10/02/17 10:12 Insulin Aspart (NovoLOG) BEFORE MEALS AND HS SUBQ 10/01/17 17:30 10/30/17 17:29 10/02/17 11:40 Lisinopril (Zestril) 2.5 mg DAILY ORAL 10/02/17 09:00 10/31/17 08:59 Magnesium Hydroxide (Mom) 30 ml DAILYPRN PRN ORAL Constipation 10/01/17 17:00 10/30/17 16:59 Ondansetron HCl (Zofran) 4 mg Q6H PRN IVP Nausea & Vomiting 10/01/17 17:00 10/29/17 16:59 Polyethylene Glycol (Miralax) 17 gm DAILYPRN PRN ORAL Constipation 10/01/17 22:15 10/29/17 22:14 10/02/17 11:04 Spironolactone (Aldactone) 25 mg DAILY ORAL 10/02/17 09:00 10/31/17 08:59 Temazepam (Restoril) 15 mg HSPRN PRN ORAL Insomnia 10/01/17 21:00 10/06/17 20:59 10/01/17 21:27 Allergies: Coded Allergies: No Known Allergies (Unverified , 05/09/12) ROS Limited/Unobtainable: No Constitutional: Reports: no symptoms HEENT: Reports: no symptoms Cardiovascular: Reports: no symptoms Respiratory: Reports: no symptoms Gastrointestinal/Abdominal: Reports: no symptoms Genitourinary: Reports: no symptoms Neurologic/Psychiatric: Reports: no symptoms Subjective 82 YO M admitted with edema bilat legs and shortness of breath. Now CHF exacerbation. Cover for Int Med Dr Delgado. Objective Last Vital Signs Date Time Temp Pulse Resp B/P (MAP) Pulse Ox O2 Delivery O2 Flow Rate FiO2 10/02/17 12:29 117/70 10/02/17 12:00 97.9 78 20 100 97.9 10/01/17 19:13 Room Air 21 Laboratory Tests Test 10/01/17 21:50 10/02/17 06:15 Troponin I 0.005 ng/mL (0.000-0.056) White Blood Count 5.0 K/UL (4.8-10.8) Red Blood Count 4.82 M/UL (4.70-6.10) Hemoglobin 13.7 G/DL (14.2-18.0) L Hematocrit 42.1 % (42.0-52.0) Mean Corpuscular Volume 87 FL (80-99) Mean Corpuscular Hemoglobin 28.4 PG (27.0-31.0) Mean Corpuscular Hemoglobin Concent 32.6 G/DL (32.0-36.0) Red Cell Distribution Width 14.9 % (11.6-14.8) H Platelet Count 229 K/UL (150-450) Mean Platelet Volume 7.9 FL (6.5-10.1) Neutrophils (%) (Auto) 50.4 % (45.0-75.0) Lymphocytes (%) (Auto) 30.3 % (20.0-45.0) Monocytes (%) (Auto) 12.5 % (1.0-10.0) H Eosinophils (%) (Auto) 5.3 % (0.0-3.0) H Basophils (%) (Auto) 1.5 % (0.0-2.0) Sodium Level 135 MMOL/L (136-145) L Potassium Level 4.1 MMOL/L (3.5-5.1) Chloride Level 101 MMOL/L (98-107) Carbon Dioxide Level 28 MMOL/L (21-32) Anion Gap 6 mmol/L (5-15) Blood Urea Nitrogen 51 mg/dL (7-18) H Creatinine 1.6 MG/DL (0.55-1.30) H Estimat Glomerular Filtration Rate mL/min (>60) Glucose Level 96 MG/DL (74-106) Calcium Level 9.0 MG/DL (8.5-10.1) Total Bilirubin 0.9 MG/DL (0.2-1.0) Aspartate Amino Transf (AST/SGOT) 81 U/L (15-37) H Alanine Aminotransferase (ALT/SGPT) 116 U/L (12-78) H Alkaline Phosphatase 121 U/L (46-116) H Pro-B-Type Natriuretic Peptide 3333 pg/mL (0-125) H Total Protein 6.2 G/DL (6.4-8.2) L Albumin 3.0 G/DL (3.4-5.0) L Globulin 3.2 g/dL Albumin/Globulin Ratio 0.9 (1.0-2.7) L Intake and Output 10/01/17 10/02/17 19:00 07:00 Intake Total 920 ml 240 ml Balance 920 ml 240 ml Intake Oral 920 ml 240 ml # Voids 2 2 Objective General Appearance: WD/WN, no apparent distress, alert EENT: PERRL/EOMI, normal ENT inspection Neck: non-tender, normal alignment, supple, normal inspection Cardiovascular: normal peripheral pulses, normal rate, regular rhythm, no gallop/murmur, no JVD Respiratory/Chest: chest wall non-tender, no respiratory distress, no accessory muscle use, accessory muscle use, crackles/rales, expiratory wheezing Abdomen: normal bowel sounds, non tender, soft, no organomegaly, no mass Extremities: normal range of motion, non-tender Edema: moderate edema Neurologic: studio potter II-XII grossly normal, no motor/sensory deficits, abnormal gait , alert Skin: normal pigmentation, warm/dry Assessment/Plan Problem List: (1) CAD (coronary artery disease) Assessment & Plan: S/P CABG. See cardiology note. (2) Cardiomyopathy (3) Elevated LFTs Assessment & Plan: Abdominal ultrasound=WNL. See GI note. (4) Diabetes mellitus, type II (5) HTN (hypertension) Assessment & Plan: Continue lisinopril (6) Hypercholesteremia Assessment & Plan: Continue gemfibrozil (7) AICD (automatic cardioverter/defibrillator) present (8) Chest pain (9) SOB (shortness of breath) Assessment & Plan: Due to CHF (10) CHF exacerbation Assessment & Plan: LVEF <20%. See cardiology note. Continue lasix (11) Edema Assessment & Plan: Resolving Status: progressing GUI COMER Oct 02, 2017 16:33
--- NOTE | 2017-10-02 16:59 | Cardiology Progress Note ---
Assessment/Plan Problem List: (1) CHF exacerbation (2) Peripheral edema (3) PVD (peripheral vascular disease) (4) CAD (coronary artery disease) (5) Elevated LFTs (6) AICD (automatic cardioverter/defibrillator) present Status: stable, unchanged Status Narrative is stable from a cardiac standpoint. He does not appear with pulmonary congestion currently. Leg edema has resolved. He has PVD w/ decreased LE pulses and claudication Assessment/Plan Lasix has been stopped. He is tolerating very low dose lisinopril, coreg and aldactone. Unable to titrate meds due to low BP. Needs evaluation for PVD - ? as outpt D/w Dr. Barillas - possible dc home tomorrow if stable. Subjective ROS Limited/Unobtainable: No Subjective Cardiology for Dr. Sena Mr. Elizabeth was transferred off telemetry. He c/o not feeling well, anxious, but denies chest pain or dyspnea. No leg pain at rest. , Objective Last 24 Hour Vital Signs Date Time Temp Pulse Resp B/P (MAP) Pulse Ox O2 Delivery O2 Flow Rate FiO2 10/02/17 12:29 117/70 10/02/17 12:00 97.9 78 20 95/63 100 97.9 10/02/17 08:00 98.1 85 19 91/60 100 98.1 10/02/17 04:20 97.9 81 17 104/65 98 97.9 10/02/17 00:29 96.9 77 17 101/74 100 96.9 10/01/17 21:00 74 91/51 10/01/17 20:00 96.8 76 17 97/77 100 96.8 10/01/17 19:13 78 16 Room Air 21 General Appearance: WD/WN, alert EENT: PERRL/EOMI Neck: no JVD Rhythm: NSR Cardiovascular: normal rate, regular rhythm, systolic murmur Respiratory/Chest: lungs clear Abdomen: non tender, soft, no mass Extremities: no swelling, other - cool distal LEs, no palpable dp, pt bilat Intake and Output 10/01/17 10/02/17 19:00 07:00 Intake Total 920 ml 240 ml Balance 920 ml 240 ml Intake Oral 920 ml 240 ml # Voids 2 2 Laboratory Tests Test 10/01/17 21:50 10/02/17 06:15 Troponin I 0.005 ng/mL (0.000-0.056) White Blood Count 5.0 K/UL (4.8-10.8) Red Blood Count 4.82 M/UL (4.70-6.10) Hemoglobin 13.7 G/DL (14.2-18.0) L Hematocrit 42.1 % (42.0-52.0) Mean Corpuscular Volume 87 FL (80-99) Mean Corpuscular Hemoglobin 28.4 PG (27.0-31.0) Mean Corpuscular Hemoglobin Concent 32.6 G/DL (32.0-36.0) Red Cell Distribution Width 14.9 % (11.6-14.8) H Platelet Count 229 K/UL (150-450) Mean Platelet Volume 7.9 FL (6.5-10.1) Neutrophils (%) (Auto) 50.4 % (45.0-75.0) Lymphocytes (%) (Auto) 30.3 % (20.0-45.0) Monocytes (%) (Auto) 12.5 % (1.0-10.0) H Eosinophils (%) (Auto) 5.3 % (0.0-3.0) H Basophils (%) (Auto) 1.5 % (0.0-2.0) Sodium Level 135 MMOL/L (136-145) L Potassium Level 4.1 MMOL/L (3.5-5.1) Chloride Level 101 MMOL/L (98-107) Carbon Dioxide Level 28 MMOL/L (21-32) Anion Gap 6 mmol/L (5-15) Blood Urea Nitrogen 51 mg/dL (7-18) H Creatinine 1.6 MG/DL (0.55-1.30) H Estimat Glomerular Filtration Rate mL/min (>60) Glucose Level 96 MG/DL (74-106) Calcium Level 9.0 MG/DL (8.5-10.1) Total Bilirubin 0.9 MG/DL (0.2-1.0) Aspartate Amino Transf (AST/SGOT) 81 U/L (15-37) H Alanine Aminotransferase (ALT/SGPT) 116 U/L (12-78) H Alkaline Phosphatase 121 U/L (46-116) H Pro-B-Type Natriuretic Peptide 3333 pg/mL (0-125) H Total Protein 6.2 G/DL (6.4-8.2) L Albumin 3.0 G/DL (3.4-5.0) L Globulin 3.2 g/dL Albumin/Globulin Ratio 0.9 (1.0-2.7) L VOLODYMYR GUNN Oct 02, 2017 16:59
[2017-10-02 20:00] VITALS: BP 114/64
[2017-10-03] VITALS (9 sets, daily range): BP systolic 73–114; BP diastolic 46–68
--- NOTE | 2017-10-03 01:16 | General Progress Note ---
Assessment/Plan Assessment/Plan 1. Lower extremity deep venous thrombosis of the left leg with thrombus in the peroneal vein. --> This is a distal leg deep venous thrombosis and at this time, given low risk of clot extension, we will hold off on anticoagulation. --> Only continue heparin subcutaneous. 2. Coagulopathy, potentially secondary to liver disease. Closely monitor. --> Hepatitis panel is negative. --> Abdomen ultrasound also negative. 3. Transaminitis, potentially secondary to liver disease. He has been seen by Gastroenterology Service. Closely monitor. 4. Coronary artery disease, status post heart surgery. 5. Hypercholesteremia. LDL goal is 100. 6. Lower extremities edema, secondary to congestive heart failure. 7. CHF exacerbation. 8. Diabetes mellitus. Subjective Date patient seen: Oct 02, 2017 Constitutional: Denies: no symptoms, chills, diaphoresis, fever, malaise, weakness, other HEENT: Denies: no symptoms, eye pain, blurred vision, tearing, double vision, ear pain, ear discharge, nose pain, nose congestion, throat pain, throat swelling, mouth pain, mouth swelling, other Cardiovascular: Denies: no symptoms, chest pain, edema, irregular heart rate, lightheadedness, palpitations, syncope, other Respiratory: Denies: no symptoms, cough, orthopnea, shortness of breath, SOB with excertion, SOB at rest, sputum, stridor, wheezing, other Gastrointestinal/Abdominal: Denies: no symptoms, abdomen distended, abdominal pain, black stools, tarry stools, blood in stool, constipated, diarrhea, difficulty swallowing, nausea, poor appetite, poor fluid intake, rectal bleeding , vomiting, other Genitourinary: Denies: no symptoms, burning, discharge, frequency, flank pain, hematuria, incontinence, pain, urgency, other Neurologic/Psychiatric: Denies: no symptoms, anxiety, depressed, emotional problems, headache, numbness, paresthesia, pre-existing deficit, seizure, tingling, tremors, weakness, other Hematologic/Lymphatic: Reports: anemia Allergies: Coded Allergies: No Known Allergies (Unverified , 05/09/12) Subjective On heparin. Feeling better. No fever. Objective Last 24 Hour Vital Signs Date Time Temp Pulse Resp B/P (MAP) Pulse Ox O2 Delivery O2 Flow Rate FiO2 10/03/17 00:00 96.3 69 17 98/46 97 Room Air 96.3 10/02/17 21:00 74 99/59 10/02/17 20:00 96.4 77 20 114/64 99 Room Air 96.4 10/02/17 19:50 75 18 Room Air 21 10/02/17 12:29 117/70 10/02/17 12:00 97.9 78 20 95/63 100 97.9 10/02/17 08:00 98.1 85 19 91/60 100 98.1 10/02/17 04:20 97.9 81 17 104/65 98 97.9 Intake and Output 10/02/17 10/03/17 19:00 07:00 Intake Total 950 ml Balance 950 ml Intake Oral 800 ml IV Total 150 ml # Voids 5 # Bowel Movements 1 Laboratory Tests 10/02/17 06:15: White Blood Count 5.0, Red Blood Count 4.82, Hemoglobin 13.7L, Hematocrit 42.1, Mean Corpuscular Volume 87, Mean Corpuscular Hemoglobin 28.4, Mean Corpuscular Hemoglobin Concent 32.6, Red Cell Distribution Width 14.9H, Platelet Count 229, Mean Platelet Volume 7.9, Neutrophils (%) (Auto) 50.4, Lymphocytes (%) (Auto) 30.3, Monocytes (%) (Auto) 12.5H, Eosinophils (%) (Auto) 5.3H, Basophils (%) ( Auto) 1.5, Sodium Level 135L, Potassium Level 4.1, Chloride Level 101, Carbon Dioxide Level 28, Anion Gap 6, Blood Urea Nitrogen 51H, Creatinine 1.6H, Estimat Glomerular Filtration Rate , Glucose Level 96, Calcium Level 9.0, Total Bilirubin 0.9, Aspartate Amino Transf (AST/SGOT) 81H, Alanine Aminotransferase ( ALT/SGPT) 116H, Alkaline Phosphatase 121H, Pro-B-Type Natriuretic Peptide 3333H , Total Protein 6.2L, Albumin 3.0L, Globulin 3.2, Albumin/Globulin Ratio 0.9L Height (Feet): 5 Height (Inches): 5.00 Weight (Pounds): 130 General Appearance: mild distress Neck: normal alignment Respiratory/Chest: normal breath sounds Abdomen: non tender, soft ELIZABETH VASQUEZ Oct 03, 2017 01:16
[2017-10-03] MEDS: NovoLOG Insulin Flexpen SUBQ SCH ×3 (05:54→17:05)
[2017-10-03 06:31] LABS: EOSINOPHILS % (AUTO) 4.7 % (0.0-3.0); HEMATOCRIT 45.7 % (42.0-52.0); HEMOGLOBIN 15.2 G/DL (14.2-18.0); LYMPHOCYTES % (AUTO) 35.9 % (20.0-45.0); MEAN CORPUSCULAR VOLUME 87 FL (80-99); NEUTROPHILS % (AUTO) 44.3 % (45.0-75.0); PLATELET COUNT 237 K/UL (150-450); RED BLOOD COUNT 5.24 M/UL (4.70-6.10); RED CELL DISTRIBUTION WIDTH 15.2 % (11.6-14.8); WHITE BLOOD COUNT 3.9 K/UL (4.8-10.8)
[2017-10-03 07:05] LABS: ALANINE AMINOTRANSFERASE 101 U/L (12-78); ALBUMIN 3.1 G/DL (3.4-5.0); ALBUMIN/GLOBULIN RATIO 0.9 (1.0-2.7); ALKALINE PHOSPHATASE 121 U/L (46-116); ANION GAP 11 mmol/L (5-15); ASPARTATE AMINO TRANSFERASE 64 U/L (15-37); BILIRUBIN,TOTAL 0.8 MG/DL (0.2-1.0); BLOOD UREA NITROGEN 45 mg/dL (7-18); CALCIUM 9.4 MG/DL (8.5-10.1); CARBON DIOXIDE 21 MMOL/L (21-32); CHLORIDE 104 MMOL/L (98-107); CREATININE 1.3 MG/DL (0.55-1.30); POTASSIUM 4.5 MMOL/L (3.5-5.1); SODIUM 136 MMOL/L (136-145)
[2017-10-03] MEDS: Carvedilol 12.5mg tab ORAL SCH (08:17)
[2017-10-03] MEDS: Spironolactone 25mg tab ORAL SCH (08:17)
[2017-10-03] MEDS: Lisinopril 2.5mg tab ORAL SCH (08:17)
[2017-10-03] MEDS: Aspirin EC 81mg tab ORAL SCH (08:20)
[2017-10-03] MEDS: Heparin 5000 units/ml inj SUBQ SCH (08:25)
--- NOTE | 2017-10-03 09:36 | Diagnostic Imaging Report ---
Indication: Shortness of breath Technique: One view of the chest Comparison: 09/29/2017 Findings: There is a coronary stent again demonstrated. There is left chest AICD. There is evidence of prior median sternotomy. Lungs and pleural spaces are clear. Impression: No acute process
--- NOTE | 2017-10-03 12:17 | Internal Med Progress Note ---
Subjective Date of Service: Oct 03, 2017 Physician Name Smita Comer Attending Physician Goran Delgado MD Current Medications Medications (Trade) Dose Ordered Sig/González Route PRN Reason Start Time Stop Time Status Last Admin Dose Admin Acetaminophen (Tylenol) 650 mg Q4H PRN ORAL T>100.5 10/01/17 18:15 10/29/17 22:14 10/02/17 16:05 Albuterol Sulfate (Proventil) 2.5 mg Q4H PRN HHN Shortness of Breath 10/02/17 11:15 10/07/17 11:14 Aspirin (Ecotrin) 81 mg DAILY ORAL 10/02/17 09:00 10/31/17 08:59 10/03/17 08:20 Bisacodyl (Dulcolax) 10 mg DAILYPRN PRN RECTAL Constipation 10/01/17 17:00 10/30/17 16:59 Carvedilol (Coreg) 12.5 mg Q12HR ORAL 10/01/17 21:00 10/31/17 20:59 10/03/17 08:17 Clopidogrel Bisulfate (Plavix) 75 mg DAILY ORAL 10/02/17 09:00 10/30/17 08:59 10/03/17 08:17 Dextrose (Dextrose 50%) 25 ml STAT PRN IV Hypoglycemia 10/01/17 22:15 10/29/17 22:14 Dextrose (Dextrose 50%) 50 ml STAT PRN IV Hypoglycemia 10/01/17 22:15 10/29/17 22:14 Finasteride (Proscar) 5 mg DAILY ORAL 10/02/17 09:00 10/30/17 08:59 10/03/17 08:17 Gabapentin (Neurontin) 400 mg QHS ORAL 10/01/17 21:00 10/30/17 20:59 10/02/17 21:09 Gemfibrozil (Lopid) 600 mg BID ORAL 10/01/17 18:00 10/31/17 08:59 10/03/17 08:18 Heparin Sodium (Porcine) (Heparin 5000 units/ml) 5,000 units EVERY 12 HOURS SUBQ 10/01/17 21:00 10/30/17 08:59 10/03/17 08:25 Insulin Aspart (NovoLOG) BEFORE MEALS AND HS SUBQ 10/01/17 17:30 10/30/17 17:29 10/03/17 11:46 Lisinopril (Zestril) 2.5 mg DAILY ORAL 10/02/17 09:00 10/31/17 08:59 10/03/17 08:17 Magnesium Hydroxide (Mom) 30 ml DAILYPRN PRN ORAL Constipation 10/01/17 17:00 10/30/17 16:59 Ondansetron HCl (Zofran) 4 mg Q6H PRN IVP Nausea & Vomiting 10/01/17 17:00 10/29/17 16:59 Polyethylene Glycol (Miralax) 17 gm DAILYPRN PRN ORAL Constipation 10/01/17 22:15 10/29/17 22:14 10/02/17 11:04 Spironolactone (Aldactone) 25 mg DAILY ORAL 10/02/17 09:00 10/31/17 08:59 10/03/17 08:17 Temazepam (Restoril) 15 mg HSPRN PRN ORAL Insomnia 10/01/17 21:00 10/06/17 20:59 10/02/17 21:09 Allergies: Coded Allergies: No Known Allergies (Unverified , 05/09/12) ROS Limited/Unobtainable: No Constitutional: Reports: no symptoms HEENT: Reports: no symptoms Cardiovascular: Reports: no symptoms Respiratory: Reports: no symptoms Gastrointestinal/Abdominal: Reports: no symptoms Genitourinary: Reports: no symptoms Neurologic/Psychiatric: Reports: no symptoms Subjective 82 YO M admitted with edema bilat legs and shortness of breath. Now CHF exacerbation. Cover for Int Pérez Delgado. C/O right foot pain. Lives alone- requests home health. Objective Last Vital Signs Date Time Temp Pulse Resp B/P (MAP) Pulse Ox O2 Delivery O2 Flow Rate FiO2 10/03/17 12:05 70 91/52 10/03/17 12:04 96.3 18 100 Room Air 96.3 10/03/17 08:24 21 Laboratory Tests Test 10/03/17 05:50 White Blood Count 3.9 K/UL (4.8-10.8) L Red Blood Count 5.24 M/UL (4.70-6.10) Hemoglobin 15.2 G/DL (14.2-18.0) Hematocrit 45.7 % (42.0-52.0) Mean Corpuscular Volume 87 FL (80-99) Mean Corpuscular Hemoglobin 29.0 PG (27.0-31.0) Mean Corpuscular Hemoglobin Concent 33.3 G/DL (32.0-36.0) Red Cell Distribution Width 15.2 % (11.6-14.8) H Platelet Count 237 K/UL (150-450) Mean Platelet Volume 7.6 FL (6.5-10.1) Neutrophils (%) (Auto) 44.3 % (45.0-75.0) L Lymphocytes (%) (Auto) 35.9 % (20.0-45.0) Monocytes (%) (Auto) 13.0 % (1.0-10.0) H Eosinophils (%) (Auto) 4.7 % (0.0-3.0) H Basophils (%) (Auto) 2.0 % (0.0-2.0) Sodium Level 136 MMOL/L (136-145) Potassium Level 4.5 MMOL/L (3.5-5.1) Chloride Level 104 MMOL/L (98-107) Carbon Dioxide Level 21 MMOL/L (21-32) Anion Gap 11 mmol/L (5-15) Blood Urea Nitrogen 45 mg/dL (7-18) H Creatinine 1.3 MG/DL (0.55-1.30) Estimat Glomerular Filtration Rate mL/min (>60) Glucose Level 150 MG/DL (74-106) H Calcium Level 9.4 MG/DL (8.5-10.1) Total Bilirubin 0.8 MG/DL (0.2-1.0) Aspartate Amino Transf (AST/SGOT) 64 U/L (15-37) H Alanine Aminotransferase (ALT/SGPT) 101 U/L (12-78) H Alkaline Phosphatase 121 U/L (46-116) H Pro-B-Type Natriuretic Peptide 4111 pg/mL (0-125) H Total Protein 6.7 G/DL (6.4-8.2) Albumin 3.1 G/DL (3.4-5.0) L Globulin 3.6 g/dL Albumin/Globulin Ratio 0.9 (1.0-2.7) L Intake and Output 10/02/17 10/03/17 19:00 07:00 Intake Total 950 ml Balance 950 ml Intake Oral 800 ml IV Total 150 ml # Voids 5 4 # Bowel Movements 1 1 Objective General Appearance: WD/WN, no apparent distress, alert EENT: PERRL/EOMI, normal ENT inspection Neck: non-tender, normal alignment, supple, normal inspection Cardiovascular: normal peripheral pulses, normal rate, regular rhythm, no gallop/murmur, no JVD Respiratory/Chest: chest wall non-tender, no respiratory distress, no accessory muscle use, accessory muscle use, crackles/rales, expiratory wheezing Abdomen: normal bowel sounds, non tender, soft, no organomegaly, no mass Extremities: normal range of motion, non-tender Edema: moderate edema Neurologic: lime boiler II-XII grossly normal, no motor/sensory deficits, abnormal gait , alert Skin: normal pigmentation, warm/dry Assessment/Plan Problem List: (1) CAD (coronary artery disease) Assessment & Plan: S/P CABG. See cardiology note. (2) Cardiomyopathy (3) Elevated LFTs Assessment & Plan: Abdominal ultrasound=WNL. See GI note. (4) Diabetes mellitus, type II (5) HTN (hypertension) Assessment & Plan: Continue lisinopril (6) Hypercholesteremia Assessment & Plan: Continue gemfibrozil (7) AICD (automatic cardioverter/defibrillator) present (8) Chest pain (9) SOB (shortness of breath) Assessment & Plan: Due to CHF (10) CHF exacerbation Assessment & Plan: LVEF <20%. See cardiology note. 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 Right. Await podiatry consult. Status: progressing SMITA COMER Oct 03, 2017 12:17
--- NOTE | 2017-10-03 16:22 | Diagnostic Imaging Report ---
Indication: Foot pain Technique: 3 views right foot Comparison: none Findings: There is marked hallux valgus and metatarsus adductus. There is marked hammertoe deformity of the second through fifth digits. No acute fractures. No dislocations. The joint spaces are preserved. There are small plantar and calcaneal spurs. There are arterial calcifications. Impression: No acute bony trauma. Findings as noted
--- NOTE | 2017-10-03 22:51 | General Progress Note ---
Assessment/Plan Assessment/Plan 1. Lower extremity deep venous thrombosis of the left leg with thrombus in the peroneal vein. --> This is a distal leg deep venous thrombosis and at this time, given low risk of clot extension, we will hold off on anticoagulation. --> Only continue heparin subcutaneous. 2. Coagulopathy, potentially secondary to liver disease. Closely monitor. --> Hepatitis panel is negative. --> Abdomen ultrasound also negative. --> Anticoagulation measures. 3. Transaminitis, potentially secondary to liver disease. He has been seen by Gastroenterology Service. Closely monitor. 4. Coronary artery disease, status post heart surgery. 5. Hypercholesteremia. LDL goal is 100. 6. Lower extremities edema, secondary to congestive heart failure. 7. CHF exacerbation. 8. Diabetes mellitus. Subjective Date patient seen: Oct 03, 2017 Constitutional: Denies: no symptoms, chills, diaphoresis, fever, malaise, weakness, other HEENT: Denies: no symptoms, eye pain, blurred vision, tearing, double vision, ear pain, ear discharge, nose pain, nose congestion, throat pain, throat swelling, mouth pain, mouth swelling, other Cardiovascular: Denies: no symptoms, chest pain, edema, irregular heart rate, lightheadedness, palpitations, syncope, other Respiratory: Denies: no symptoms, cough, orthopnea, shortness of breath, SOB with excertion, SOB at rest, sputum, stridor, wheezing, other Gastrointestinal/Abdominal: Denies: no symptoms, abdomen distended, abdominal pain, black stools, tarry stools, blood in stool, constipated, diarrhea, difficulty swallowing, nausea, poor appetite, poor fluid intake, rectal bleeding , vomiting, other Genitourinary: Denies: no symptoms, burning, discharge, frequency, flank pain, hematuria, incontinence, pain, urgency, other Neurologic/Psychiatric: Denies: no symptoms, anxiety, depressed, emotional problems, headache, numbness, paresthesia, pre-existing deficit, seizure, tingling, tremors, weakness, other Hematologic/Lymphatic: Reports: anemia Allergies: Coded Allergies: No Known Allergies (Unverified , 05/09/12) Subjective On heparin. Hypotensive. No acute events. Pending dc today. Objective Last 24 Hour Vital Signs Date Time Temp Pulse Resp B/P (MAP) Pulse Ox O2 Delivery O2 Flow Rate FiO2 10/03/17 17:34 73 18 100/53 90 Nasal Cannula 2.0 10/03/17 16:04 74 87/52 10/03/17 16:02 96.3 76 18 86/57 100 Room Air 96.3 10/03/17 12:05 70 91/52 10/03/17 12:04 96.3 74 18 77/52 100 Room Air 96.3 10/03/17 12:00 67 73/49 10/03/17 12:00 74 77/52 10/03/17 08:24 86 18 Room Air 21 10/03/17 08:17 114/68 10/03/17 08:17 84 114/68 10/03/17 08:04 97.7 84 20 114/68 93 Room Air 97.7 10/03/17 04:00 97.0 79 20 109/59 97 Room Air 97.0 10/03/17 00:00 96.3 69 17 98/46 97 Room Air 96.3 Intake and Output 10/02/17 10/03/17 19:00 07:00 Intake Total 950 ml Balance 950 ml Intake Oral 800 ml IV Total 150 ml # Voids 5 4 # Bowel Movements 1 1 Laboratory Tests 10/03/17 05:50: White Blood Count 3.9L, Red Blood Count 5.24, Hemoglobin 15.2, Hematocrit 45.7, Mean Corpuscular Volume 87, Mean Corpuscular Hemoglobin 29.0, Mean Corpuscular Hemoglobin Concent 33.3, Red Cell Distribution Width 15.2H, Platelet Count 237, Mean Platelet Volume 7.6, Neutrophils (%) (Auto) 44.3L, Lymphocytes (%) (Auto) 35.9, Monocytes (%) (Auto) 13.0H, Eosinophils (%) (Auto) 4.7H, Basophils (%) ( Auto) 2.0, Sodium Level 136, Potassium Level 4.5, Chloride Level 104, Carbon Dioxide Level 21, Anion Gap 11, Blood Urea Nitrogen 45H, Creatinine 1.3, Estimat Glomerular Filtration Rate , Glucose Level 150H, Calcium Level 9.4, Total Bilirubin 0.8, Aspartate Amino Transf (AST/SGOT) 64H, Alanine Aminotransferase (ALT/SGPT) 101H, Alkaline Phosphatase 121H, Pro-B-Type Natriuretic Peptide 4111H, Total Protein 6.7, Albumin 3.1L, Globulin 3.6, Albumin/Globulin Ratio 0.9L Height (Feet): 5 Height (Inches): 5.00 Weight (Pounds): 130 General Appearance: no apparent distress Neck: normal alignment Cardiovascular: normal rate, regular rhythm Respiratory/Chest: lungs clear, normal breath sounds Abdomen: soft ELIZABETH VASQUEZ Oct 03, 2017 22:51
--- NOTE | 2017-10-03 23:15 | General Progress Note ---
Assessment/Plan Assessment/Plan Assessment - Abnormal LFT - ? passive congestion - ? Statin - ? other - CM/CHF - CAD - hypercholesterolemia Recommendations - Optimize cardiac status - check hepatitis serologies - liver imaging - agree with holding statin Subjective Allergies: Coded Allergies: No Known Allergies (Unverified , 05/09/12) Subjective Seen earlier today no abd pain tolerating PO diet Objective Last 24 Hour Vital Signs Date Time Temp Pulse Resp B/P (MAP) Pulse Ox O2 Delivery O2 Flow Rate FiO2 10/03/17 17:34 73 18 100/53 90 Nasal Cannula 2.0 10/03/17 16:04 74 87/52 10/03/17 16:02 96.3 76 18 86/57 100 Room Air 96.3 10/03/17 12:05 70 91/52 10/03/17 12:04 96.3 74 18 77/52 100 Room Air 96.3 10/03/17 12:00 67 73/49 10/03/17 12:00 74 77/52 10/03/17 08:24 86 18 Room Air 21 10/03/17 08:17 114/68 10/03/17 08:17 84 114/68 10/03/17 08:04 97.7 84 20 114/68 93 Room Air 97.7 10/03/17 04:00 97.0 79 20 109/59 97 Room Air 97.0 10/03/17 00:00 96.3 69 17 98/46 97 Room Air 96.3 Intake and Output 10/02/17 10/03/17 19:00 07:00 Intake Total 950 ml Balance 950 ml Intake Oral 800 ml IV Total 150 ml # Voids 5 4 # Bowel Movements 1 1 Laboratory Tests 10/03/17 05:50: White Blood Count 3.9L, Red Blood Count 5.24, Hemoglobin 15.2, Hematocrit 45.7, Mean Corpuscular Volume 87, Mean Corpuscular Hemoglobin 29.0, Mean Corpuscular Hemoglobin Concent 33.3, Red Cell Distribution Width 15.2H, Platelet Count 237, Mean Platelet Volume 7.6, Neutrophils (%) (Auto) 44.3L, Lymphocytes (%) (Auto) 35.9, Monocytes (%) (Auto) 13.0H, Eosinophils (%) (Auto) 4.7H, Basophils (%) ( Auto) 2.0, Sodium Level 136, Potassium Level 4.5, Chloride Level 104, Carbon Dioxide Level 21, Anion Gap 11, Blood Urea Nitrogen 45H, Creatinine 1.3, Estimat Glomerular Filtration Rate , Glucose Level 150H, Calcium Level 9.4, Total Bilirubin 0.8, Aspartate Amino Transf (AST/SGOT) 64H, Alanine Aminotransferase (ALT/SGPT) 101H, Alkaline Phosphatase 121H, Pro-B-Type Natriuretic Peptide 4111H, Total Protein 6.7, Albumin 3.1L, Globulin 3.6, Albumin/Globulin Ratio 0.9L Height (Feet): 5 Height (Inches): 5.00 Weight (Pounds): 130 Objective Thins man NCAT supple CTA RRR soft, ND nT no edema ROSIBEL SNELL Oct 03, 2017 23:15
--- NOTE | 2017-10-03 23:49 | General Progress Note ---
Assessment/Plan Status Narrative anxiety d/o mdd cont ativan consider low dose antidepressants Subjective Date patient seen: Oct 03, 2017 Neurologic/Psychiatric: Reports: anxiety, depressed Allergies: Coded Allergies: No Known Allergies (Unverified , 05/09/12) Objective Last 24 Hour Vital Signs Date Time Temp Pulse Resp B/P (MAP) Pulse Ox O2 Delivery O2 Flow Rate FiO2 10/03/17 17:34 73 18 100/53 90 Nasal Cannula 2.0 10/03/17 16:04 74 87/52 10/03/17 16:02 96.3 76 18 86/57 100 Room Air 96.3 10/03/17 12:05 70 91/52 10/03/17 12:04 96.3 74 18 77/52 100 Room Air 96.3 10/03/17 12:00 67 73/49 10/03/17 12:00 74 77/52 10/03/17 08:24 86 18 Room Air 21 10/03/17 08:17 114/68 10/03/17 08:17 84 114/68 10/03/17 08:04 97.7 84 20 114/68 93 Room Air 97.7 10/03/17 04:00 97.0 79 20 109/59 97 Room Air 97.0 10/03/17 00:00 96.3 69 17 98/46 97 Room Air 96.3 Intake and Output 10/02/17 10/03/17 19:00 07:00 Intake Total 950 ml Balance 950 ml Intake Oral 800 ml IV Total 150 ml # Voids 5 4 # Bowel Movements 1 1 Laboratory Tests 10/03/17 05:50: White Blood Count 3.9L, Red Blood Count 5.24, Hemoglobin 15.2, Hematocrit 45.7, Mean Corpuscular Volume 87, Mean Corpuscular Hemoglobin 29.0, Mean Corpuscular Hemoglobin Concent 33.3, Red Cell Distribution Width 15.2H, Platelet Count 237, Mean Platelet Volume 7.6, Neutrophils (%) (Auto) 44.3L, Lymphocytes (%) (Auto) 35.9, Monocytes (%) (Auto) 13.0H, Eosinophils (%) (Auto) 4.7H, Basophils (%) ( Auto) 2.0, Sodium Level 136, Potassium Level 4.5, Chloride Level 104, Carbon Dioxide Level 21, Anion Gap 11, Blood Urea Nitrogen 45H, Creatinine 1.3, Estimat Glomerular Filtration Rate , Glucose Level 150H, Calcium Level 9.4, Total Bilirubin 0.8, Aspartate Amino Transf (AST/SGOT) 64H, Alanine Aminotransferase (ALT/SGPT) 101H, Alkaline Phosphatase 121H, Pro-B-Type Natriuretic Peptide 4111H, Total Protein 6.7, Albumin 3.1L, Globulin 3.6, Albumin/Globulin Ratio 0.9L Height (Feet): 5 Height (Inches): 5.00 Weight (Pounds): 130 General Appearance: no apparent distress, alert Edwin Thompson M.D. Oct 03, 2017 23:49
--- NOTE | 2017-10-03 23:49 | Consultation ---
History of Present Illness General Date patient seen: Oct 01, 2017 Chief Complaint: General Complaint Present Illness HPI 82-year-old man with past medical history significant for severe cardiomyopathy status post AICD in left-side chest wall with a recent generator change, history of coronary artery disease status post open heart surgery, diabetes type 2, hypertension, dyslipidemia who presented to the emergency room after he was called by clinic and advised him to come to the hospital. the pt pw anxiety and fatigue, no si/hi Allergies: Coded Allergies: No Known Allergies (Unverified , 05/09/12) Medication History Scheduled Albuterol Sulfate* (Proair Hfa*), 1 PUFF INH Q6H, (Reported) Aspirin Ec* (Aspirin Ec*), 81 MG PO HS, (Reported) Aspirin* (Aspir 81*), 81 MG ORAL DAILY, (Reported) Atorvastatin Calcium* (Atorvastatin Calcium*), 40 MG ORAL BEDTIME, (Reported) Bumetanide* (Bumetanide*), 1 MG ORAL DAILY, (Reported) Carvedilol (Coreg), 12.5 MG PO BID, (Reported) Chlorhexidine Gluconate (Chlorhexidine Gluconate), 1 OZ MT BID, (Reported) Clopidogrel Bisulfate* (Plavix*), 75 MG PO DAILY, (Reported) Dexlansoprazole (Dexilant), 60 MG PO DAILY, (Reported) Finasteride* (Proscar*), 5 MG ORAL DAILY, (Reported) Furosemide* (Lasix*), 40 MG ORAL DAILY, (Reported) Gabapentin* (Neurontin*), 400 MG PO QHS, (Reported) Gemfibrozil* (Lopid*), 600 MG PO BID, (Reported) Insulin Glargine (Lantus), 0 SUBQ BEDTIME, (Reported) Lipase/Protease/Amylase (Creon Dr 12,000 Units Capsule), 1 EACH PO TID, ( Reported) Lorazepam* (Lorazepam*), 0.5 MG ORAL THREE TIMES A DAY, (Reported) Lubiprostone (Amitiza), 8 MCG PO DAILY, (Reported) Metoprolol Succinate* (Metoprolol Succinate*), 25 MG ORAL DAILY, (Reported) Omeprazole (Omeprazole), 40 MG PO DAILY, (Reported) Omeprazole (Omeprazole), 40 MG ORAL DAILY, (Reported) Pentoxifylline* (Trental*), 400 MG ORAL THREE TIMES A DAY, (Reported) Ranolazine (Ranexa), 1,000 MG PO BID, (Reported) Spironolactone (Aldactone), 25 MG PO DAILY, (Reported) Thiamine Hcl (Vitamin B-1), 100 MG PO BID, (Reported) Valsartan (Diovan), 40 MG ORAL DAILY, (Reported) Scheduled PRN Diphenhydramine Hcl* (Diphenhydramine Hcl*), 25 MG PO HS PRN, (Reported) Hydrocodone Bit/Acetaminophen 5-325* (Bokeelia 5-325*), 1 TAB PO Q4HR PRN, ( Reported) Patient History Limited by: medical condition History Provided By: Patient, Medical Record, PMD Healthcare decision maker Resuscitation status Full Code Advanced Directive on File No Past Medical/Surgical History Past Medical/Surgical History: (1) End-stage systolic heart failure (2) PVD (peripheral vascular disease) (3) Peripheral edema (4) CHF exacerbation (5) Diabetes mellitus (6) Renal insufficiency (7) CAD (coronary artery disease) (8) Diabetes mellitus, type II (9) SOB (shortness of breath) (10) Hypercholesteremia (11) Chest pain (12) Cardiomyopathy (13) HTN (hypertension) (14) Elevated LFTs (15) Edema (16) 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 Review of Systems Psychiatric: Reports: prior hx, anxiety, depressed feelings, emotional problems Physical Exam General Appearance: no apparent distress, alert Neurologic: oriented x 3, responsive, depressed affect Last 24 Hour Vital Signs Date Time Temp Pulse Resp B/P (MAP) Pulse Ox O2 Delivery O2 Flow Rate FiO2 10/03/17 17:34 73 18 100/53 90 Nasal Cannula 2.0 10/03/17 16:04 74 87/52 10/03/17 16:02 96.3 76 18 86/57 100 Room Air 96.3 10/03/17 12:05 70 91/52 10/03/17 12:04 96.3 74 18 77/52 100 Room Air 96.3 10/03/17 12:00 67 73/49 10/03/17 12:00 74 77/52 10/03/17 08:24 86 18 Room Air 21 10/03/17 08:17 114/68 10/03/17 08:17 84 114/68 10/03/17 08:04 97.7 84 20 114/68 93 Room Air 97.7 10/03/17 04:00 97.0 79 20 109/59 97 Room Air 97.0 10/03/17 00:00 96.3 69 17 98/46 97 Room Air 96.3 Intake and Output 10/02/17 10/03/17 19:00 07:00 Intake Total 950 ml Balance 950 ml Intake Oral 800 ml IV Total 150 ml # Voids 5 4 # Bowel Movements 1 1 Laboratory Tests Test 10/03/17 05:50 White Blood Count 3.9 K/UL (4.8-10.8) L Red Blood Count 5.24 M/UL (4.70-6.10) Hemoglobin 15.2 G/DL (14.2-18.0) Hematocrit 45.7 % (42.0-52.0) Mean Corpuscular Volume 87 FL (80-99) Mean Corpuscular Hemoglobin 29.0 PG (27.0-31.0) Mean Corpuscular Hemoglobin Concent 33.3 G/DL (32.0-36.0) Red Cell Distribution Width 15.2 % (11.6-14.8) H Platelet Count 237 K/UL (150-450) Mean Platelet Volume 7.6 FL (6.5-10.1) Neutrophils (%) (Auto) 44.3 % (45.0-75.0) L Lymphocytes (%) (Auto) 35.9 % (20.0-45.0) Monocytes (%) (Auto) 13.0 % (1.0-10.0) H Eosinophils (%) (Auto) 4.7 % (0.0-3.0) H Basophils (%) (Auto) 2.0 % (0.0-2.0) Sodium Level 136 MMOL/L (136-145) Potassium Level 4.5 MMOL/L (3.5-5.1) Chloride Level 104 MMOL/L (98-107) Carbon Dioxide Level 21 MMOL/L (21-32) Anion Gap 11 mmol/L (5-15) Blood Urea Nitrogen 45 mg/dL (7-18) H Creatinine 1.3 MG/DL (0.55-1.30) Estimat Glomerular Filtration Rate mL/min (>60) Glucose Level 150 MG/DL (74-106) H Calcium Level 9.4 MG/DL (8.5-10.1) Total Bilirubin 0.8 MG/DL (0.2-1.0) Aspartate Amino Transf (AST/SGOT) 64 U/L (15-37) H Alanine Aminotransferase (ALT/SGPT) 101 U/L (12-78) H Alkaline Phosphatase 121 U/L (46-116) H Pro-B-Type Natriuretic Peptide 4111 pg/mL (0-125) H Total Protein 6.7 G/DL (6.4-8.2) Albumin 3.1 G/DL (3.4-5.0) L Globulin 3.6 g/dL Albumin/Globulin Ratio 0.9 (1.0-2.7) L Height (Feet): 5 Height (Inches): 5.00 Weight (Pounds): 130 Assessment/Plan Status: stable, progressing Assessment/Plan anxiety d/o mdd cont ativan consider low dose antidepressants Edwin hTompson M.D. Oct 03, 2017 23:49
--- NOTE | 2017-10-06 17:53 | Discharge Summary ---
Discharge Summary Hospital Course Date of Admission Sep 29, 2017 at 20:52 Date of Discharge Oct 03, 2017 at 17:40 Admitting Diagnosis chest pain, congestive heart failure HPI Jose Carlos Elizabeth is a 82 year old male who was admitted on Sep 29, 2017 at 20:52 for Chest Pain, Congestive Heart Failure Hospital Course [id number] Discharge Discharge Disposition Patient was discharged to Home (01) Hyun Gonzalez NP Oct 06, 2017 17:53
--- NOTE | 2017-10-07 00:09 | Diagnostic Imaging Report ---
APPROVED REPORT CPT Code: 75852 Symptoms Comments: Pain RIGHT LEG: Common femoral artery waveform analysis is within normal limits at rest. Color flow duplex sonography reveals minimal calcification throughout the superficial femoral and popliteal arteries. There is no evidence of stenosis or occlusion within these segments. The tibioperoneal trunk was not well visualized. The posterior tibial, anterior tibial and dorsalis pedis arteries are also minimally calcified. Doppler tibial artery waveform analysis is compatible with minimal to mild ischemia at rest. LEFT LEG: Common femoral artery waveform analysis is within normal limits at rest. Color flow duplex sonography reveals minimal calcification throughout the superficial femoral and popliteal arteries. There is no evidence of stenosis or occlusion within these segments. The tibioperoneal trunk was not well visualized. The posterior tibial, anterior tibial and dorsalis pedis arteries are also minimally calcified. Doppler tibial artery waveform analysis is compatible with minimal to mild ischemia at rest.
--- NOTE | 2017-10-07 00:11 | Diagnostic Imaging Report ---
APPROVED REPORT CPT Code: 05451 Present Symptoms Comments: Left leg pain RIGHT LEG: Venous imaging reveals a patent deep venous system. There is no evidence of thrombus within the femoral, popliteal or tibial segments. The greater saphenous vein is also within normal limits. Doppler indicates normal spontaneous flow within these segments. LEFT LEG: Venous imaging reveals acute thrombus in the peroneal vein. Imaging also reveals patency of the common femoral, popliteal and calf veins (posterior tibial and anterior). Greater saphenous vein also within normal limits. Incidental finding: Cystic, echogenic structure noted at the left popliteal vein level. Possible Bakers cyst, measuring (3.2 cm x 1.4 cm). CHRISSY Jo was notified of abnormal results at 0905 hours.
--- NOTE | 2017-10-07 18:15 | Discharge Summary 2 SIG ---
DATE OF ADMISSION: 09/29/2017 DATE OF DISCHARGE: 10/03/2017 CONSULTANTS: 1. Ramy Sheriff M.D. 2. Edwin Thomspon M.D. 3. Charlene Downey M.D. 4. Chris Cornell M.D. BRIEF HOSPITAL COURSE: The patient is an 82-year-old delightful [place] gentleman with past medical history significant for severe cardiomyopathy, status post AICD on the left side of the chest wall with recent generator change, history of coronary artery disease, status post open heart surgery, diabetes type 2, hypertension, dyslipidemia. He complained of leg edema as well as chest discomfort. He recently had a procedure on his left leg with angiogram done approximately two weeks prior to arrival. He had increased bilateral leg discomfort and was noted to have leg swelling with associated shortness of breath and chest discomfort. He had been taking his diuretics with minimal effect. On evaluation at the emergency room, chest x-ray showed normal cardiac size with pacemaker. He was given Lasix and was admitted for CHF exacerbation and abnormal liver function tests. He was continued on his diuretic, Coreg, Plavix, and Lasix. He was also given Aldactone. Echocardiogram done showed EF less than 20% with global left ventricular hypokinesis, mild aortic regurgitation, mild mitral regurgitation, mild tricuspid regurgitation. He had elevated liver function tests of unclear etiology. Statin was placed on hold. Hepatitis panel was negative. He had venous duplex of lower extremity that showed an acute thrombus in the left leg. He was given heparin subcutaneous. He was assessed by perinatal director to have a distal leg deep venous thrombosis and given low risk of clot extension, hold off on anticoagulation. He had episodes of anxiety and he was given Ativan, consider adding low-dose antidepressant. He was stable cardiac amado. He was eventually discharged home. X-ray of the right foot did not show any acute trauma. FINAL DIAGNOSES: 1. Acute systolic CHF exacerbation. 2. AICD. 3. Hypercholesterolemia. 4. Hypertension. 5. Diabetes. 6. Elevated liver transaminases. 7. Coronary artery disease, status post coronary artery bypass graft. 8. Ulcer on the foot secondary to diabetes mellitus, present on admission. 9. Major depressive disorder. 10. Anxiety. 11. Peripheral vascular disease. 12. Acute thrombus left leg. DISPOSITION: The patient was discharged home. DISCHARGE MEDICATIONS: Refer to medication list. DISCHARGE INSTRUCTIONS: Follow up with Dr. Delgado in a week. Ramy Sheriff M.D. I have been assigned to dictate discharge summary on this account and I was not involved in the patient's management. Hyun Gonzalez N.P. DR: CHIKI JOB#: [id number] CC: DELMA
== END 2017-10-03 17:40 | disposition home or self-care (01) | DRG 291 ==
LOC: EMR 16:29 → 2E 20:52 → EDBEDREQ 21:15 → 2E 21:58 → OBSVTOIN 22:02 → 4W 10-01 15:33
DX: I13.0 Hypertensive heart and chronic kidney disease with heart failure and stage 1 through stage 4 chronic kidney disease, or unspecified chronic kidney disease (principal); I50.21 Acute systolic (congestive) heart failure; I82.4Z2 Acute embolism and thrombosis of unspecified deep veins of left distal lower extremity; N18.3 Chronic kidney disease, stage 3 (moderate); E11.621 Type 2 diabetes mellitus with foot ulcer; F41.9 Anxiety disorder, unspecified; F32.9 Major depressive disorder, single episode, unspecified; E11.22 Type 2 diabetes mellitus with diabetic chronic kidney disease; I73.9 Peripheral vascular disease, unspecified; E78.5 Hyperlipidemia, unspecified; J44.9 Chronic obstructive pulmonary disease, unspecified; E78.00 Pure hypercholesterolemia, unspecified; K76.9 Liver disease, unspecified; I44.4 Left anterior fascicular block; R74.0 Nonspecific elevation of levels of transaminase and lactic acid dehydrogenase [LDH]; M20.41 Other hammer toe(s) (acquired), right foot; D64.9 Anemia, unspecified; I95.9 Hypotension, unspecified; Z86.73 Personal history of transient ischemic attack (TIA), and cerebral infarction without residual deficits; Z79.82 Long term (current) use of aspirin; Z79.4 Long term (current) use of insulin; Z95.1 Presence of aortocoronary bypass graft; Z95.810 Presence of automatic (implantable) cardiac defibrillator; I25.2 Old myocardial infarction; Z82.49 Family history of ischemic heart disease and other diseases of the circulatory system; Z80.9 Family history of malignant neoplasm, unspecified
CPT/HCPCS: 36415; 71045; 76700; 80048; 80053; 82248; 82465; 82962; 83735; 83880; 84100; 84443; 84484; 85025; 85610; 85651; 85730; 86705; 86709; 86803; 87340; 93005; 93306; 93925; 93970; 94664; 99285; J1815